=== PATIENT | female | born 1955 | race Two or more races ===

== ENCOUNTER 2023-02-27 16:31 | Outpatient (REF) | payer MEDICAID, SELFPAY | END 2023-02-27 16:32 | disposition home or self-care (01) | LOC: HO.HHCX 16:31 | PROVIDERS: Visit Provider Internal Medicine | DX: M25.522 Pain in left elbow (principal); M54.50 Low back pain, unspecified; G89.29 Other chronic pain; Z91.81 History of falling | CPT/HCPCS: 72100; 73070 ==

== ENCOUNTER 2023-03-24 09:17 | Outpatient (REF) | payer MEDICAID, SELFPAY | END 2023-03-24 09:18 | disposition home or self-care (01) | LOC: HO.HOSX 09:17 | PROVIDERS: Visit Provider Physician Assistant | DX: Z13.89 Encounter for screening for other disorder (principal) ==

== ENCOUNTER 2023-03-27 10:48 | Outpatient (REF) | payer MEDICAID, SELFPAY ==
--- NOTE | ~2023-03-27 | XR_ITS ---
EXAMINATION: XR ELBOW, LEFT CLINICAL INFORMATION: Pain. COMPARISON: Radiographs dated 02/27/2023. TECHNIQUE: AP, lateral, and oblique views of the left elbow. FINDINGS: There is bony demineralization. There is stable mild displacement of a fracture of the olecranon process of the proximal left ulna. This shows intra-articular extension. There is no significant new callus formation. No dislocation is seen. There is no significant joint effusion. No focal soft tissue swelling, gas or foreign body is seen. XR/XR elbow LT min 3V IMPRESSION: There is stable mild displacement of a fracture of the lateral process of the proximal left ulna. No significant new callus formation is seen.
== END 2023-03-27 10:49 | disposition home or self-care (01) ==
LOC: HO.HOSX 10:48
PROVIDERS: PCP Registered Nurse; Visit Provider Physician Assistant
DX: M25.522 Pain in left elbow (principal); S52.022A Displaced fracture of olecranon process without intraarticular extension of left ulna, initial encounter for closed fracture; W01.0XXA Fall on same level from slipping, tripping and stumbling without subsequent striking against object, initial encounter; Y93.9 Activity, unspecified; Y92.009 Unspecified place in unspecified non-institutional (private) residence as the place of occurrence of the external cause; Y99.9 Unspecified external cause status
CPT/HCPCS: 73080; 99212

== ENCOUNTER 2023-03-27 10:48 | Outpatient (AMB) | payer MEDICAID, SELFPAY ==
--- NOTE | 2023-03-27 11:07 | MHC.OFFVIS ---
Intake Intake Visit Reasons: fc-displaced intra-articular fx olecranon Intake Note: Karissa is a 67 year old right hand dominant female who presents today for a evaluation of her left elbow fx, DOI 02/17/23. Patient reports she slipped and fell in her home. Patient reports that she is having pain when she is bending her arm and her ROM is limited. Allergies aspirin Allergy (Mild, Verified 03/27/23 11:08) Rash Medication List - Last Reconciled 03/27/23 by Javan Calderon PA-C cetirizine 10 mg PO DAILY etanercept (Enbrel SureClick) mg subcut losartan 25 mg PO QAM omeprazole 20 mg PO DAILY HPI fc-displaced intra-articular fx olecranon HPI Details 67-year-old right hand dominant female who presents to the office today with an tomato grader for evaluation of left elbow injury s/p slipping and falling in her house, 02/17/23. Records from her PCP states she did not seek medical attention after the fall due to the holidays. She currently states she has pain in her elbow which is aggravated with bending her arm. She also c/o limited ROM in her elbow and finds it difficult to grab objects and sweep the floor. She is applying warm compress and taking ibuprofen for her pain. [facility] Social History (Updated 03/27/23 @ 11:11 by Bonifacio Araiza) Alcohol intake: never Patient Tobacco Use Status: Never used Tobacco Current occupational status: disabled Review of Systems Const All systems reviewed & are unremarkable except as noted in HPI and below Physical Exam Const General: cooperative and no acute distress Orientation/consciousness: patient oriented x3 Resp Effort & Inspection: normal respiratory effort and able to speak in complete sentences Cardio Peripheral pulses: Peripheral pulses 2+ throughout Neuro General: patient oriented x3 Extrem Other: Left elbow: Normal to inspection. Flexion to about 80 degrees, extension to -15 degrees. NVI. Office Procedures Fracture Care Fracture Billing Code: Fracture Billing Code Results Reviewed Results Reviewed: Xrays were obtained in the office today and personally reviewed by me of the left elbow show mildly displaced olecranon fracture with stability compared to previous imaging. Assessment & Plan Assessment & Plan (1) Fracture of olecranon process, left, closed: Code(s): S52.022A - Displaced fracture of olecranon process without intraarticular extension of left ulna, initial encounter for closed fracture Qualifiers: Encounter type: initial encounter Qualified Code(s): S52.022A - Displaced fracture of olecranon process without intraarticular extension of left ulna, initial encounter for closed fracture Plan Dr. Grant was available to see the patient with me today. Because her fracture is approximately 6 weeks out and there is evidence of stability, we are going to treat this non operatively. She can move the arm however she just have some disc with activities. She will avoid any type of heavy lifting. She can continue gentle ROM but avoid any deep ROM of her arm. She will see us back in 6 weeks with new x-rays, sooner if needed. Orders: Orders XR elbow LT min 3V 03/27/23 M25.522 - Pain in left elbow Patient Instructions: Scribed for Javan Calderon PA-C, by Tiago Chávez medical billing coordinator, on 03/27/2023 at 10:30 AM EST. I, Javan Calderon PA-C, have personally reviewed and agree with the information entered by the scribe. Coding Level of Care Code New Pt Level 3 (41109) Diagnoses Closed fracture of olecranon process of left ulna, initial encounter S52.022A Encounter type: initial encounter CPT Codes Fracture Care - Fracture Billing Code: Fracture Billing Code ([id number])
== END 2023-03-27 12:18 | disposition home or self-care (01) ==
PROVIDERS: PCP Registered Nurse; Visit Provider Physician Assistant
DX: S52.022A Displaced fracture of olecranon process without intraarticular extension of left ulna, initial encounter for closed fracture (principal)
CPT/HCPCS: 99203

== ENCOUNTER 2023-04-28 15:55 | Outpatient (REF) | payer MEDICAID, SELFPAY | END 2023-04-28 15:56 | disposition home or self-care (01) | LOC: HO.HOSX 15:55 | PROVIDERS: Visit Provider Physician Assistant | DX: Z13.89 Encounter for screening for other disorder (principal) ==

== ENCOUNTER 2023-07-01 09:26 | Outpatient (REF) | payer MEDICAID, SELFPAY ==
[2023-07-01 12:00] LABS: Hematocrit 32.7 % (37.0-47.0); Hemoglobin 10.8 g/dl (12.0-16.0); Mean Corpuscular Hemoglobin 30.4 pg (27.0-33.0); Mean Corpuscular Volume 92.1 fL (80.0-98.0); Mean Platelet Volume 9.6 fL (9.4-12.3); Platelet Count 372 X10*3/uL (160-400); Red Blood Count 3.55 X10*6/uL (4.20-5.50); Red Cell Distribution Width 13.1 % (11.0-16.0); White Blood Count 4.9 X10*3/uL (4.8-10.8)
[2023-07-01 12:11] LABS: Estimated Average Glucose 111 mg/dL; Hemoglobin A1c % 5.5 % (<6.0)
[2023-07-01 12:25] LABS: Alanine Aminotransferase 15 U/L (0-31); Alkaline Phosphatase 88 U/L (39-117); Anion Gap 13 (12-20); Aspartate Amino Transferase 15 U/L (5-31); Bilirubin Total 0.2 mg/dL (0.0-1.0); Blood Urea Nitrogen 11 mg/dL (9-16); Carbon Dioxide 24 mmol/L (22-29); Chloride 107 mmol/L (96-108); Cholesterol 182 mg/dL (<200); Estimated Glomerular Filt Rate > 60; Glucose Random 83 mg/dL (60-115); HDL Cholesterol 36 mg/dL (>40); Iron 67 mcg/dL (30-160); LDL Cholesterol Calculated 115 mg/dL (<100); Percent Iron Saturation 31 % (15-50); Potassium 3.8 mmol/L (3.3-5.1); Sodium 140 mmol/L (135-145); Total Iron Binding Capacity 218 mcg/dL (228-428); Total Protein 6.9 g/dL (6.5-8.0); Triglycerides 156 mg/dL (<150); Unsaturated Iron Binding 151 ug/dL
[2023-07-01 12:39] LABS: Syphilis Screen Nonreactive (Nonreactive)
[2023-07-01 12:41] LABS: HBS Num1 0.16 mIU/mL (0-7.99); HBc Num1 0.11 S/CO (0.00-0.79); HBsAGNum1 0.24 S/CO (0.00-0.99); HIV AB/AG Nonreactive (Nonreactive); HIV Num 1 0.04 S/CO (0.00-0.99); Hepatitis B Core Antibody Nonreactive (Nonreactive); Hepatitis B Surface Antigen Negative (Negative); ~HepC Num1 0.09 S/CO (0.00-0.79); ~Hepatitis B Surface Antibody NONREACTIVE (Nonreactive); ~Hepatitis C Antibody Nonreactive (Nonreactive)
[2023-07-01 12:43] LABS: Ferritin 70 ng/mL (10-250); TSH reflex Free T4 1.84 uIU/mL (0.32-4.0); Vitamin D 25-OH Total 25.9 ng/mL (>30)
[2023-07-01 12:48] LABS: Folate 11.4 ng/mL (> or = 4.0); Vitamin B12 1960 pg/mL (200-900)
[2023-07-04 11:09] LABS: TS Negative Control Passed; TS Panel A 0; TS Panel B 1; TS Positive Control Passed; TSpotTB Negative (Negative)
== END 2023-07-01 09:27 | disposition home or self-care (01) ==
LOC: HO.HHCL 09:26
PROVIDERS: Visit Provider Student in an Organized Health Care Education/Training Program
DX: Z00.00 Encounter for general adult medical examination without abnormal findings (principal); Z11.4 Encounter for screening for human immunodeficiency virus [HIV]
CPT/HCPCS: 36415; 80053; 80061; 82306; 82607; 82728; 82746; 83036; 83540; 84443; 85027; 86481; 86704; 86706; 86780; 86803; 87340; 87389

== ENCOUNTER 2023-07-04 16:11 | Outpatient (REF) | payer MEDICAID, SELFPAY ==
[2023-07-04 17:11] LABS: Creatinine Urine 204.51 mg/dL; Microalbum/Creatinine Ratio Ur 9.7 ug/mg cr (<30)
== END 2023-07-04 16:12 | disposition home or self-care (01) ==
LOC: HO.HHCLNP 16:11
PROVIDERS: Visit Provider Student in an Organized Health Care Education/Training Program
DX: Z00.00 Encounter for general adult medical examination without abnormal findings (principal)
CPT/HCPCS: 82043; 82570

== ENCOUNTER 2023-08-20 13:48 | Outpatient (REF) | payer MEDICAID, SELFPAY ==
--- NOTE | ~2023-08-20 | MM_ITS ---
EXAMINATION: BONE DENSITOMETRY CLINICAL INDICATION: Chronic bone pain. History of chronic steroids. Evaluate for osteoporosis. COMPARISON: This is the patient's baseline examination. TECHNIQUE: Using a [employer] DXA System (software version: 13.1) manufactured by [employer], dual-energy x-ray absorptiometry was performed of the lumbar spine and left hip. The images are of good technical quality. Summary results are attached. FINDINGS: AP SPINE L1-L4: BMD 0.781 g/cm2, Z-score -1.6, T-score -3.3, osteoporosis. LEFT FEMUR, NECK: BMD 0.686 g/cm2, Z-score -0.8, T-score -2.5, osteoporosis. LEFT FEMUR, TOTAL: BMD 0.754 g/cm2, Z-score -0.5, T-score -2.0, osteopenia. IDENTIFIED RISK FACTORS: History of adult fracture. Rheumatoid arthritis. Menopause. HISTORY OF FRACTURE: Elbow. MEDICATIONS: Vitamin D. MM/XR DEXA axial skeleton IMPRESSION: 1. DIAGNOSIS: Osteoporosis based on the lowest T-score value of -3.3 in the lumbar spine applying World Health Organization criteria. 2. 10-YEAR FRACTURE RISK PREDICTION, FRAX: According to the guidelines, FRAX calculation should only be performed on patients in the osteopenia bone density category.?Therefore, FRAX was not performed on this patient.? 3. Treatment Recommendations: NOF guidelines recommend consideration for treatment in postmenopausal women and men age 50 and older presenting with the following: -A hip or vertebral (clinical or morphometric) fracture. -T-score less than or equal to -2.5 at the femoral neck or spine after appropriate evaluation to exclude secondary causes. -Low bone mass at the hip or spine and a 10-year fracture probability by FRAX of greater than or equal to 3% for hip fracture or greater than or equal to 20% for major osteoporotic fracture based on the [place] adapted WHO algorithm. 4. Other Recommendations: All treatment decisions require clinical judgment and consideration of individual patient factors, including patient preferences, comorbidities, previous drug use, risk factors not captured in the FRAX model (e.g. frailty, falls, vitamin D deficiency, increased bone turnover, interval significant decline in bone density) and possible under or overestimation of fracture risk by FRAX. Additional medical evaluation for secondary cause of low bone mineral density may be appropriate. FUTURE SCAN RECOMMENDATION: People with diagnosed cases of osteoporosis or at high risk for fracture should have regular bone mineral density tests. For patients eligible for Medicare, routine testing is allowed once every 2 years. The testing frequency can be increased to one year for patients who have rapidly progressing disease, those who are receiving or discontinuing medical therapy to restore bone mass, or have additional risk factors.
== END 2023-08-20 13:49 | disposition home or self-care (01) ==
LOC: HO.MAMMO 13:48
PROVIDERS: Visit Provider Student in an Organized Health Care Education/Training Program
DX: Z13.820 Encounter for screening for osteoporosis (principal); Z78.0 Asymptomatic menopausal state; M89.8X9 Other specified disorders of bone, unspecified site
CPT/HCPCS: 77080

== ENCOUNTER 2023-12-12 09:51 | Outpatient (REF) | payer MEDICAID, SELFPAY ==
[2023-12-12 13:37] LABS: Alanine Aminotransferase 14 U/L (0-31); Albumin Level 4.1 g/dL (3.5-5.0); Alkaline Phosphatase 93 U/L (39-117); Anion Gap 11 (12-20); Aspartate Amino Transferase 15 U/L (5-31); Bilirubin Total 0.3 mg/dL (0.0-1.0); Blood Urea Nitrogen 12 mg/dL (9-16); Calcium 9.5 mg/dL (8.4-10.2); Carbon Dioxide 26 mmol/L (22-29); Chloride 106 mmol/L (96-108); Cholesterol 144 mg/dL (<200); Estimated Glomerular Filt Rate > 60; Glucose Random 94 mg/dL (60-115); HDL Cholesterol 43 mg/dL (>40); LDL Cholesterol Calculated 84 mg/dL (<100); Sodium 139 mmol/L (135-145); Triglycerides 89 mg/dL (<150)
[2023-12-12 13:59] LABS: Folate 13.8 ng/mL (> or = 4.0); Vitamin B12 813 pg/mL (200-900)
== END 2023-12-12 09:52 | disposition home or self-care (01) ==
LOC: HO.HHCL 09:51
PROVIDERS: Visit Provider Student in an Organized Health Care Education/Training Program
DX: E78.5 Hyperlipidemia, unspecified (principal)
CPT/HCPCS: 36415; 80053; 80061; 82607; 82746

== ENCOUNTER → 2024-07-05 12:43 | Outpatient (BNV) | payer MEDICAID, SELFPAY | PROVIDERS: PCP Student in an Organized Health Care Education/Training Program; Visit Provider Radiology Diagnostic Radiology | DX: R90.82 White matter disease, unspecified (principal) | CPT/HCPCS: 70551 ==

== ENCOUNTER 2024-07-05 12:53 | Outpatient (REF) | payer MEDICAID, SELFPAY ==
--- NOTE | ~2024-07-05 | MR_ITS ---
EXAMINATION: MR BRAIN WITHOUT CONTRAST CLINICAL INFORMATION: Worsening memory loss. COMPARISON: None available. TECHNIQUE: MRI of the brain was obtained using routine sequences without contrast. FINDINGS: Limited by patient's motion artifact. No restricted diffusion Susceptibility signal fragment midline albino and putamen basal ganglia. Bilateral multifocal patchy and punctate subcortical deep white matter hyperintense T2 FLAIR signal involving centrum semiovale and baldwin radiata. No acute intracranial hemorrhage, mass effect, midline shift, hydrocephalus or herniation. Mild prominence of the extra-axial CSF spaces cerebral sulci in keeping with patient's age. Flow-void signal within the main cerebral vessels is normal. Sellar/suprasellar region demonstrated no signal abnormality or gross masses. Craniocervical junction is intact with normal position of the cerebellar tonsils. Edentulous. MR/MR head/brain wo con IMPRESSION: No acute brain abnormality. 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 Consider calcifications in the putamen involved in a benign aging process. Calcium metabolic disorders cannot be excluded. Electronically signed by: Laureano Fountain MD 07/05/2024 02:15 PM EDT
--- OUTSIDE RECORDS SUMMARY | 2024-07-05 13:12 | XMS_ITS | Encounter Summary ---
Author Organization [email or web address] Address [address] [place] [address] [address] [place] [address] Care Team Providers Care Director Of Rehabilitation Name Role Phone Bg Frazier Primary Care Provider Unavail able Jordyn Clark MD Primary Care Pro vider Reason for Visit * Reason Onset Date Comments Med Refill 10/30/2022 Encounter Details Date Type Department Care Team (Late st Contact Info) Description 10/30/2022 Refill [facility] [address] [place] [address] Bg Frazier AGNP Social History Tobacco Use Types Packs/Day Years Used Date Smoking Tobacco: Never Smokeless Tobacco: Never Depression Answer Date Recorded Patient Health Questionnaire-9 Score 0 05/10/2022 Depression Answer Date Recorded Patient Health Questionnaire-2 Score 0 05/10/2022 Comments Unknown Sex and Gender Information Value Date Recorded Sex Assigned at Female 12/24/2021 10:39 AM EDT Legal Sex Female 10:39 AM EDT Gender Identity Female 12/24/2021 10:39 AM EDT Sexual Orientation Straight 12/24/2021 10 :39 AM EDT documented as of this encounter Plan of Treatment Upcoming Encounters Date Type Department Care Team (Late st Contact Info) Description 07/20/2024 1:30 PM EDT Clinical Support [facility] [address] [place] [address] [phone] 08/19/2024 1:15 PM EDT Office Visit [facility] [address] [place] [address] [phone] Jordyn Clark MD [address] [place] [address] [phone] documented as of this encounter Visit Diagnoses Not on filedocumented in this encounter Additional Health Concerns Assessment Noted Time PHQ-9 Depression Total Score: 0 05/11/19 10:16 AM EDT documented as of this encounter Care Teams Director Of Rehabilitation Relationship Specialty Start Date End Date Bg Frazier AGNP PCP - General Family Medicine 01/15/22 11/03/22 Jordyn Clark MD [address] [place] [address] PCP - General Internal Medicine 11/04/22 documented as of this encounter
--- OUTSIDE RECORDS SUMMARY | 2024-07-05 13:12 | XMS_ITS | Encounter Summary ---
Author Organization [employer] Address [address] [facility] [address] [place] [address] Care Team Providers Care Continuous Improvement Specialist Name Role Phone Bg Frazier Primary Care Provider Unavail able Jordyn Clark MD Primary Care Pro vider Reason for Visit * Reason Onset Date Comments Referral 03/28/2022 Encounter Details Date Type Department Care Team (Late st Contact Info) Description 03/28/[address] [facility] [address] [place] [address] Bg Frazier AGNP Referral Social History Tobacco Use Types Packs/Day Years Used Date Smoking Tobacco: Never Assessed Comments Unknown Sex and Gender Information Value Date Recorded Sex Assigned at Female 12/24/2021 10:39 AM EDT Legal Sex Female 10:39 AM EDT Gender Identity Female 12/24/2021 10:39 AM EDT Sexual Orientation Straight 12/24/2021 10 :39 AM EDT COVID-19 Exposure Response Date Recorded In the last 10 days, have yo u been in contact with someone who was confirmed or suspected to have Coronavirus/COVID-19? No / Unsure 02/27/2022 4:04 PM EST documented as of this encounter Miscellaneous Notes * Telephone Encounter - PORTER Interiano - 03/29/2022 9:35 AM EST Please inform patient that a new referral has been placed. Referrals copied as FYI * Telephone Encounter - Hilary Arleth - 03/28/2022 10:53 AM EST Tc from pt daughter requesting a new referral with a different location to an optometry due to where she was referral ,they have a wait list and no appt till May . documented in this encounter Plan of Treatment Upcoming Encounters Date Type Department Care Team (Late st Contact Info) Description 07/20/2024 1:30 PM EDT Clinical Support [address] [id number] 08/19/2024 1:15 PM EDT Office Visit [address] [address] Jordyn Clark MD [address] [place] [phone] documented as of this encounter Visit Diagnoses Diagnosis Visual testing- Primary Examination of eyes and vision documented in this encounter Care Teams Continuous Improvement Specialist Relationship Specialty Start Date End Date Bg Frazier AGNP PCP - General Family Medicine 01/15/22 11/03/22 Jordyn Clark MD [address] [place] [phone] PCP - General Internal Medicine 11/04/22 documented as of this encounter
--- OUTSIDE RECORDS SUMMARY | 2024-07-05 13:12 | XMS_ITS | Clinical Summary ---
Author Organization [employer] Address [address] [facility] 7t [place] [address] Care Team Providers Care Caramel Candy Maker Name Role Phone Jordyn Clark MD Primary Care Pro vider Allergies Active Allergy Reactions Criticality Noted Date Comments Aspirin 08/01/2022 Bruising Medications ascorbic acid (Vitamin C) 500 MG tablet take one tablet daily to help with iron absorption 01/17/20 21 Active Blood Pressure kitIndications: Essential hypertension 1 kit in the morning and 1 kit in the evening. 1 kit 02/27/19 23 Active Multiple Vitamin (multivitamin) capsule Take 1 capsule by mouth Once per day. Active acetaminophen (Tylenol 8 Hour) 650 MG ER tablet TAKE 1 TABLET BY MOUTH EVERY 8 HOURS IF NEEDED FOR MILD PAIN. DO NOT CRUSH, CHEW OR SPLIT. 30 tablet 09/15/19 24 Active calcium carbonate (Calcium 600) 600 MG tablet Take 1 tablet (600 mg) by mouth with breakfast and with evening meal. 60 tablet 3 10/07/19 24 025 Active Orencia ClickJect 125 MG/ML solution auto-injector 11/19/19 24 Active atorvastatin (Lipitor) 10 MG tablet Take 1 tablet (10 mg) by mouth Once per day. 90 tablet 12/16/19 24 025 Active losartan (Cozaar) 25 MG tabletIndicatio ns:Essential hypertension TAKE 1 TABLET BY MOUTH EVERY DAY 90 tablet 03/18/19 25 Active omeprazole (PriLOSEC) [address] capsuleIndicati ons:Epigastric pain TAKE 1 CAPSULE BY MOUTH EVERY DAY BEFORE A MEAL 90 capsule 03/18/19 25 Active alendronate (Fosamax) 70 MG tablet Take 1 tablet (70 mg) by mouth every 7 (seven) days. Take in the morning with a full glass of water, on an empty stomach, and do not take anything else by mouth or lie down for the next 30 min. 4 tablet 5 06/10/19 25 026 Active cholecalciferol (Vitamin D-3) 125 MCG (5000 UT) tablet Take 1 tablet (125 mcg) by mouth Once per day. 30 tablet 2 06/10/19 25 Active sodium chloride ([place]) 0.65 % nasal spray Administer 1 spray into each nostril if needed for congestion. 15 mL 11 06/10/19 25 026 Active simethicone (Simethicone Ultra Strength) 180 MG capsule TAKE 1 CAPSULE BY MOUTH THREE TIMES DAILY FOR GAS 90 capsule 3 07/03/19 25 Active cetirizine (ZyrTEC) 10 MG tablet TAKE 1 TABLET BY MOUTH EVERY DAY 90 tablet 1 12/10/19 23 025 Discontinued(O ther) triamcinolone (Kenalog) 0.1 % ointment Apply topically 2 times daily. 15 g 07/04/19 24 025 Discontinued(O ther) sodium chloride ([place]) 0.65 % nasal spray Administer 1 spray into each nostril if needed for congestion. 15 mL 2 07/04/19 24 025 Discontinued(R eorder (will not trigger notification to Pharmacy)) predniSONE (Deltasone) 1 MG tablet Take by mouth. 025 Discontinued(O ther) alendronate (Fosamax) 70 MG tablet Take 1 tablet (70 mg) by mouth every 7 (seven) days. Take in the morning with a full glass of water, on an empty stomach, and do not take anything else by mouth or lie down for the next 30 min. 4 tablet 5 10/07/19 24 025 Discontinued(R eorder (will not trigger notification to Pharmacy)) cholecalciferol (Vitamin D-3) 125 MCG (5000 UT) tablet Take 1 tablet (125 mcg) by mouth Once per day. 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 Assessment & Plan (09/04/2022 10:47 AM EDT): Ddx: inflamatory anemia possibly due to RA, next RA appointment 09/05/2022 patient reported. Assessment & Plan (07/03/2022 1:05 PM EDT): Patient had colon, duodenum, gastric and esophagus biopsy on 07/27/21 Findings: Colon, random Colonic mucosa with no significant diagnostic alterations Duodenum: Duodenal mucosa with no significant diagnostic alterations (villous architecture preserved) Stomach, random: Gastric antral and oxyntic mucosa with no significant diagnostic alterations. No morphologic evidence of Helicobacter pylori micro-organisms. Esophagus: Esophageal squamous mucosa with No significant diagnostic alterations. Labs Component Ref Range & Units 1 mo ago (05/22/22) 1 mo ago (05/10/22) 1 yr ago (01/03/21) Red Blood Cell Count 3.80 - 5.10 Million/uL 3.66??Low?? 3.66??Low?? 3.28??Low?? Hemoglobin 11.7 - 15.5 g/dL 11.4??Low?? 11.6??Low?? 10.5??Low?? Hematocrit 35.0 - 45.0 % 34.1??Low?? 33.9??Low?? 30.8??Low?? Component Ref Range & Units 09:35 (07/03/22) 1 mo ago (05/22/22) 1 mo ago (05/10/22) 1 yr ago (01/03/21) Hemoglobin 12.0 - 15.0 10.1??Abnormal?? 11.4??Low?? R 11.6??Low?? R 10.5??Low?? R Iron wnl B12 wnl Retic count wnl APTT wnl INR wnl I have been unable to address the cause of Karissa's anemia. I will refer her to hematology for further workup. Assessment & Plan (05/24/2022 12:56 PM EDT): Patient has follow up with me on 06/21 to discuss lab work. Previous colonoscopy/biopsy was wnl. Rheumatoid arthritis 01/05/2021 Encounters Date Type Department Care Team Description 07/02/[address] [address] Jordyn Clark MD 06/09/2024 10:45 AM EDT Office Visit [address] [address] Jordyn Clark MD Annual physical exam (Primary Dx); Dietary counseling; Exercise counseling; Rheumatoid arthritis with positive rheumatoid factor, involving unspecified site ([facility]); Memory loss; Encounter for immunization; Primary hypertension; Routine health maintenance; Hyperlipidemia, unspecified hyperlipidemia type 06/09/2024 Travel 06/02/[address] [facility] [address] [place], [place] [phone] Jordyn Clark MD Pre-visit Planning ([facility] unable to reach [facility]) 05/31/[address] [facility] [address] [place] [phone] Jordyn Clark MD chart prep 04/23/[address] [address] Jordyn Clark MD May recall from Last 3 Months Immunizations Name Administration Dates Next Due Hep B, adult 06/09/2024,10/07/2023,07/04/2023 Influenza injectable quadriv alent preservative free 04/18/2023,03/21/2021 Pfizer Covid-19 Vaccine 12+ 12/24/2023, Pfizer Covid-19 Vaccine 12+ reid-sucrose (Saba Cap) 07/27/2021 Pneumococcal Conjugate PCV 13 03/21/2021 Pneumococcal Conjugate PCV 20 09/04/2022 RSV Bivalent 07/07/2023 Tdap 03/21/2021 Family History Medical History Relation Name Comments Rheum arthritis Mother Relation Name Status Comments Mother Social History Tobacco Use Types Packs/Day Years Used Date Smoking Tobacco: Never Smokeless Tobacco: Never Tobacco Cessation:Counseling Given: Not Answered Alcohol Use Standard Drinks/Week Comments Never 0 (1 standard drink = 0.6 oz pur e alcohol) Depression Answer Date Recorded Patient Health Questionnaire-9 Score 0 06/09/2024 Patient Health Questionnaire-9 Score 0 06/09/2024 Last PHQ-9: Questionnaire Data Not on file 0 06/09/2024 Housing Stability Answer Date Recorded What is your housing situation today? I have elizabeth costello 06/09/[address] you li ve. Do you have problems with any of the following? None of the above 06/09/2024 Food Insecurity Answer Date Recorded Within the past 12 months, y ou worried that your food would run out before you got money to buy more: Never True 06/09/2024 Within the past 12 months,th e food you bought just didn't last and you didn't have enough money to get more: Never True Transportation Answer Date Recorded In the past 12 months, has l ack of transportation kept you from medical appts, meetings, work or from getting things needed for daily living? No 06/09/2024 Utilities Answer Date Recorded In the past 12 months, has t he electric, gas, oil or water company threatened to shut off services in your home? No 06/09/2024 Depression Answer Date Recorded Patient Health Questionnaire-2 Score 0 06/09/2024 Internet Access Answer Date Recorded Internet Access Q1 Yes 06/09/2024 Internet Access Q2 Not on file 06/09/2024 Comments Unknown Sex and Gender Information Value Date Recorded Sex Assigned at Female 12/24/2021 10:39 AM EDT Legal Sex Female 10:39 AM EDT Gender Identity Female 12/24/2021 10:39 AM EDT Sexual Orientation Straight 12/24/2021 10 :39 AM EDT Last Filed Vital Signs Vital Sign Reading Time Taken Comments Blood Pressure 133/73 06/09/2024 11:03 AM EDT Pulse 77 06/09/2024 11:03 AM EDT Temperature 36.1 ??C (97 ??F) 10/07/2023 11:02 AM EDT Respiratory Rate 20 06/09/2024 11:03 AM EDT Oxygen Saturation 97% 10/07/2023 11:02 AM EDT Inhaled Oxygen Concentration - - Weight 60.8 kg (134 lb) 06/09/2024 11:03 AM EDT Height 154.9 cm (5' 1 ) 06/09/2024 11:03 AM EDT Body Mass Index 25.32 06/09/2024 11:03 AM EDT Plan of Treatment Upcoming Encounters Date Type Department Care Team (Late st Contact Info) Description 07/20/2024 1:30 PM EDT Clinical Support [facility] [address] [place] [phone] 08/19/2024 1:15 PM EDT Office Visit [facility] [address] [place] [phone] Jordyn Clark MD [address] [place] [phone] Health Maintenance Due Date Last Done Comments CT Colonography 1953 FIT DNA/Cologuard 1953 FIT 1953 FOBT 1953 Sigmoidoscopy 1953 Mammogram 1993 Zoster Vaccines (1 of 2) 08/03/2003 Influenza Vaccine (#1) 2023 04/18/2023, 2021 Alcohol/Substance Use Screening 06/09/2025 06/09/2024 Depression Screening 06/09/2025 06/09/2024, 06/10/19 25 SDOH Screening 06/09/2025 06/09/2024 Tobacco Screening 06/09/2025 06/09/2024 Lipid Panel 12/11/2028 12/12/2023, 05/0 08/2023, 01/03/2021 DTaP/Tdap/Td Vaccines (2 - Td or Tdap) 03/21/2031 03/21/2021 Colonoscopy 07/28/2031 Colorectal Cancer Screening 07/28/2031 Pneumococcal Vaccine: 50+ Years Completed 09/04/2022, 03/21/2021 Hepatitis C Screening Completed 07/01/2023 RSV Patients and Patients Aged 60 years or older Completed 07/07/2023 COVID-19 Vaccine Completed 12/24/2023, , 07/27/2021, Additional history exists Hepatitis B Vaccines Completed 06/09/2024, 10/07/2023, 07/04/2023 HIB Vaccines Aged Out No longer eligi ble based on patient's age to complete this topic HPV Vaccines Aged Out No longer eligi ble based on patient's age to complete this topic Hepatitis A Vaccines Aged Out No long er eligible based on patient's age to complete this topic IPV Vaccines Aged Out No longer eligi ble based on patient's age to complete this topic Meningococcal Vaccine Aged Out No tom rehan eligible based on patient's age to complete this topic RSV under 20 months Aged Out No longe r eligible based on patient's age to complete this topic Rotavirus Vaccines Aged Out No longer eligible based on patient's age to complete this topic Procedures Procedure Name Priority Date/Time Associated Diagnosis Comments LIPID PANEL, STANDARD Routine 12/12/2023 10:00 AM EDT Hyperlipidemia, unspecified hyperlipidemia type HEPATITIS C AB W/REFL TO HCV RNA, QN, PCR Routine 07/01/2023 9:30 AM EDT Annual physical exam from Last 3 Months or Most Recently Relevant to Health Maintenance Results * Lipid Panel, Standard (12/12/2023 10:00 AM EDT) Triglycerides 89 <150 mg/dL [facility] Comment:Desirable Triglyceri de: less than 150 mg/dLBorderline High Triglyceride 150-199 mg/dLHigh Triglyceride: 200-499 mg/dLVery High Triglyceride: greater than or equal to 5OO mg/dL Cholesterol 144 <200 mg/dL [facility] Comment:Desirable Cholestero l: less than 200 mg/dLBorderline High Cholesterol: 200-239 mg/dLHigh Cholesterol: greater than 239 mg/dL LDL Cholesterol Calculated 84 <100 mg/dL [facility] Comment:Desirable LDL: less than 100 mg/dLNear Optimal/Above Optimal LDL: 110- 129 mg/dLBorderline High LDL: 130-159 mg/dLHigh LDL: 160-189 mg/dLVery High LDL: greater than or equal to 190 mg/dL HDL Cholesterol 43 >40 mg/dL [facility] Comment:Desirable HDL: great er than 40 mg/dL Note: This HDL assay may give artificially low results in patients with liver disease. Blood Venous blood specimen / Unknown 12/12/2023 10:00 AM EDT 12/12/2023 12:02 PM EDT us Jordyn Wood MD LAB BLOOD ORDERAB LES Final Result Performing Organization Address [facility] Co de Phone Number [facility] [address] [place] [phone] * Hepatitis C Antibody with Reflex to HCV, RNA, Quantitative, Real-Time PCR (07/01/2023 9:30 AM EDT) Hepatitis C Antibody Nonreactive Nonreactive [facility] Comment:Antibodies to HCV no t detected; does not exclude early acuteHCV infection. Blood Venous blood specimen / Unknown 07/01/2023 9:30 AM EDT 07/01/2023 11:41 AM EDT us Jordyn Wood MD LAB BLOOD ORDERAB LES Final Result Performing Organization Address [facility] Co de Phone Number [facility] [address] [place] [phone] from Last 3 Months or Most Recently Relevant to Health Maintenance Insurance [facility]SN [facility] STANDARD Care Teams Caramel Candy Maker Relationship Specialty Start Date End Date Jordyn Clark MD [address] [place] [phone] PCP - General Internal Medicine 11/04/22
--- OUTSIDE RECORDS SUMMARY | 2024-07-05 13:12 | XMS_ITS | Encounter Summary ---
Author Organization [employer] Address [address] [place] [address] 7 [place] [address] Care Team Providers Care Cold Storage Supervisor Name Role Phone Jordyn Clark MD Primary Care Pro vider Reason for Visit * Reason Onset Date Comments Med Refill 02/24/2024 Encounter Details Date Type Department Care Team ([facility] st Contact Info) Description 02/24/2024 Telephone [facility] [address] [place], [place] [phone] Jordyn Clark MD [address] [place] [address] Med Refill Social History Tobacco Use Types Packs/Day Years Used Date Smoking Tobacco: Never Smokeless Tobacco: Never Alcohol Use Standard Drinks/Week Comments Never 0 (1 standard drink = 0.6 oz pur e alcohol) Depression Answer Date Recorded Patient Health Questionnaire-9 Score 4 04/18/2023 Patient Health Questionnaire-9 Score 4 04/18/2023 Last PHQ-9: Questionnaire Data Not on file 0 04/18/2023 Housing Stability Answer Date Recorded What is your housing situation today? I have elizabeth costello 04/09/[address] you li ve. Do you have problems with any of the following? None of the above 04/09/2023 Food Insecurity Answer Date Recorded Within the past 12 months, y ou worried that your food would run out before you got money to buy more: Sometimes True 2023 Within the past 12 months,th e food you bought just didn't last and you didn't have enough money to get more: Sometimes True 04/09/2023 Transportation Answer Date Recorded In the past 12 months, has l ack of transportation kept you from medical appts, meetings, work or from getting things needed for daily living? No 04/09/2023 Utilities Answer Date Recorded In the past 12 months, has t he electric, gas, oil or water company threatened to shut off services in your home? No 04/09/2023 Depression Answer Date Recorded Patient Health Questionnaire-2 Score 1 04/18/2023 Comments Unknown Sex and Gender Information Value Date Recorded Sex Assigned at Female 12/24/2021 10:39 AM EDT Legal Sex Female 10:39 AM EDT Gender Identity Female 12/24/2021 10:39 AM EDT Sexual Orientation Straight 12/24/2021 10 :39 AM EDT documented as of this encounter Miscellaneous Notes * Telephone Encounter - Helen Yepez LPN - 02/24/2024 11:54 AM EST Medication was sent to [facility] on 02/09/24 with 3 refills. * Telephone Encounter - Doreen Howell - 02/24/2024 11:51 AM EST TC from pt requesting medication refill. Medications needing refill : simethicone (Simethicone Ultra Strength) 180 MG capsule To be sent to: [facility] - [address] documented in this encounter Plan of Treatment Upcoming Encounters Date Type Department Care Team (Late st Contact Info) Description 07/20/2024 1:30 PM EDT Clinical Support [facility] [address] [place] [phone] 08/19/2024 1:15 PM EDT Office Visit [facility] [address] [place] [phone] Jordyn Clark MD [address] [place] [address] documented as of this encounter Visit Diagnoses Not on filedocumented in this encounter Additional Health Concerns Assessment Noted Time PHQ-9 Depression Total Score: 4 04/18/19 24 2:52 PM EST documented as of this encounter Care Teams Cold Storage Supervisor Relationship Specialty Start Date End Date Jordyn Clark MD [address] [place] [phone] PCP - General Internal Medicine 11/04/22 documented as of this encounter
--- OUTSIDE RECORDS SUMMARY | 2024-07-05 13:12 | XMS_ITS | Encounter Summary ---
Author Organization [employer] Address [address] [facility] 7 [place] [address] Care Team Providers Care Electronic Video Games Servicer Name Role Phone Jordyn Clark MD Primary Care Pro vider Reason for Visit * Reason Onset Date Comments Med Refill 07/02/2024 Encounter Details Date Type Department Care Team (Late st Contact Info) Description 07/02/2024 Refill [facility] [address] [place], [place] [phone] Jordyn Clark MD [address] [place] [address] Social History Tobacco Use Types Packs/Day Years [...] Telephone Encounter - Helen Yepez LPN - 07/02/2024 12:38 PM EDT Last seen 06/09/24. * Telephone Encounter - Lucian Lam - 07/02/2024 12:26 PM EDT TC from pt requesting medication refill. Medications needing refill : simethicone (Simethicone Ultra Strength) 180 MG capsule To be sent to: [facility] documented in this encounter Plan of Treatment Upcoming Encounters Date Type Department Care Team (Late st Contact Info) Description 07/20/2024 1:30 PM EDT Clinical Support [facility] [address] [place] [phone] 08/19/2024 1:15 PM EDT Office Visit [facility] [address] [place] [phone] Jordyn Clark MD [address] [place], [place] [phone] documented as of this encounter Visit Diagnoses Not on filedocumented in this encounter Additional Health Concerns Assessment Noted Time PHQ-9 Depression Total Score: 0 06/10/19 25 11:04 AM EDT documented as of this encounter Care Teams Electronic Video Games Servicer Relationship Specialty Start Date End Date Jordyn Clark MD [address] [place] [phone] PCP - General Internal Medicine 11/04/22 documented as of this encounter
--- OUTSIDE RECORDS SUMMARY | 2024-07-05 13:12 | XMS_ITS | Encounter Summary ---
Author Organization [employer] Address [address] [place] [address] 7 [place] [address] Care Team Providers Care Stucco Laborer Name Role Phone Jordyn Clark MD Primary Care Pro vider Reason for Visit * Reason Onset Date Comments Med Refill 12/05/2023 Encounter Details Date Type Department Care Team ([facility] st Contact Info) Description 12/05/2023 Telephone [facility] [address] [place], [place] [phone] Jordyn Clark MD [address] [place] [address] Med Refill Social History Tobacco Use Types [...] Telephone Encounter - Helen Yepez LPN - 12/05/2023 3:38 PM EDT Medication was sent to [facility] on 09/15/23 with 3 refills. * Telephone Encounter - Hitesh Araiza - 12/05/2023 3:35 PM EDT TC from pt requesting medication refill. Medications needing refill: simethicone (Simethicone Ultra Strength) 180 MG capsule To be sent to: [facility] - [place], [place] - [address] [place] [address] documented in this encounter Plan of Treatment Upcoming Encounters Date Type Department Care Team (Late st Contact Info) Description 07/20/2024 1:30 PM EDT Clinical Support [facility] [address] [place] [phone] 08/19/2024 1:15 PM EDT Office Visit [facility] [address] [place] [phone] Jordyn Clark MD [address] [place] [address] documented as of this encounter Visit Diagnoses Not on filedocumented in this encounter Additional Health Concerns Assessment Noted Time PHQ-9 Depression Total Score: 4 02/23/20 24 2:52 PM EST documented as of this encounter Care Teams Stucco Laborer Relationship Specialty Start Date End Date Jordyn Clark MD [address] [place] [phone] PCP - General Internal Medicine 11/04/22 documented as of this encounter
--- OUTSIDE RECORDS SUMMARY | 2024-07-05 13:12 | XMS_ITS | Encounter Summary ---
Author Organization [employer] Address [address] [place] [address] 7t [place] [address] Care Team Providers Care Air Route Traffic Controller Name Role Phone Bg Frazier Primary Care Provider Unavail able Jordyn Clark MD Primary Care Pro vider Reason for Visit * Reason Onset Date Comments medical Letter 09/09/2022 Encounter Details Date Type Department Care Team ([facility] st Contact Info) Description 09/09/2022 Telephone [facility] [address] [place] [address] Bg Frazier AGNP medical Letter Social History Tobacco Use Types Packs/Day Years [...] suspected to have Coronavirus/COVID-19? No / Unsure 09/04/2022 9:50 AM EDT documented as of this encounter Miscellaneous Notes * Telephone Encounter - Bianca Thompson - 09/09/2022 4:01 PM EDT Tc from daughter requesting a letter with pt's all medical conditions in order to renew handicappedservices or plate. Please contact daughter at [phone] Uzbek Speaker documented in this encounter Plan of Treatment Upcoming Encounters Date Type Department Care Team (Late st Contact Info) Description 07/20/2024 1:30 PM EDT Clinical Support [address] [phone] 08/19/2024 1:15 PM EDT Office Visit [address] [address] Jordyn Clark MD [address] [place] [phone] documented as of this encounter Visit Diagnoses Not on filedocumented in this encounter Additional Health Concerns Assessment Noted Time PHQ-9 Depression Total Score: 0 05/11/19 23 10:16 AM EDT documented as of this encounter Care Teams Air Route Traffic Controller Relationship Specialty Start Date End Date Bg Frazier AGNP PCP - General Family Medicine 01/15/22 11/03/22 Jordyn Clark MD [address] [place] [phone] PCP - General Internal Medicine 11/04/22 documented as of this encounter
--- OUTSIDE RECORDS SUMMARY | 2024-07-05 13:12 | XMS_ITS | Encounter Summary ---
Author Organization [employer] Address [address] [facility] 7t [place] [address] Care Team Providers Care Tank Builder Supervisor Name Role Phone Jordyn Clark MD Primary Care Pro vider Reason for Visit * Reason Comments Med Refill Encounter Details Date Type Department Care Team (Late st Contact Info) Description 07/10/[address] [facility] 230 [place], [place] [phone] Jordyn Clark MD 230 [place] [address] Social History Tobacco Use Types Packs/Day Years [...] Description 07/20/2024 1:30 PM EDT Clinical Support [address] [address] 08/19/2024 1:15 PM EDT Office Visit [address] [address] Jordyn Clark MD [address] [place] [phone] documented as of this encounter Visit Diagnoses Not on filedocumented in this encounter Additional Health Concerns Assessment Noted Time PHQ-9 Depression Total Score: 4 04/18/19 24 2:52 PM EST documented as of this encounter Care Teams Tank Builder Supervisor Relationship Specialty Start Date End Date Jordyn Clark MD [address] [place] [phone] PCP - General Internal Medicine 11/04/22 documented as of this encounter
--- OUTSIDE RECORDS SUMMARY | 2024-07-05 13:12 | XMS_ITS | Encounter Summary ---
Author Organization [employer] Address [address] [place] [address] 7t [place] [address] Care Team Providers Care Pot Pusher Name Role Phone Jordyn Clark MD Primary Care Pro vider Reason for Visit * Reason Comments Med Refill Encounter Details Date Type Department Care Team (Late st Contact Info) Description 11/08/2022 Refill [facility] & PEDS 505 [place], [place] [phone] Barbra Padilla MD 505 [place], [place] [phone] Social History Tobacco Use Types Packs/Day Years [...] Description 07/20/2024 1:30 PM EDT Clinical Support [facility] [address] [place] [address] [phone] 08/19/2024 1:15 PM EDT Office Visit [facility] [address] [place] [address] Jordyn Clark MD 230 [place], [place] [phone] documented as of this encounter Visit Diagnoses Not on filedocumented in this encounter Additional Health Concerns Assessment Noted Time PHQ-9 Depression Total Score: 0 05/11/19 10:16 AM EDT documented as of this encounter Care Teams Pot Pusher Relationship Specialty Start Date End Date Jordyn Clark MD [address] [place] [phone] PCP - General Internal Medicine 11/04/22 documented as of this encounter
--- OUTSIDE RECORDS SUMMARY | 2024-07-05 13:12 | XMS_ITS | Encounter Summary ---
Author Organization [employer] Address [address] [place] [address] 7 [place] [address] Care Team Providers Care Component Overhaul Operator Name Role Phone Jordyn Clark MD Primary Care Pro vider Reason for Visit * Reason Onset Date Comments Created in error 10/28/2023 Encounter Details Date Type Department Care Team ([facility] st Contact Info) Description 10/28/2023 Telephone [facility] 230 [place], [place] [phone] Jordyn Clark MD 230 [place] [address] Created in error Social History Tobacco Use Types Packs/Day Years [...] Description 07/20/2024 1:30 PM EDT Clinical Support [address] [address] 08/19/2024 1:15 PM EDT Office Visit [address] [address] Jordyn Clark MD [address] [place] [phone] documented as of this encounter Visit Diagnoses Not on filedocumented in this encounter Additional Health Concerns Assessment Noted Time PHQ-9 Depression Total Score: 4 04/18/19 24 2:52 PM EST documented as of this encounter Care Teams Component Overhaul Operator Relationship Specialty Start Date End Date Jordyn Clark MD [address] [place] [phone] PCP - General Internal Medicine 11/04/22 documented as of this encounter
--- OUTSIDE RECORDS SUMMARY | 2024-07-05 13:12 | XMS_ITS | Encounter Summary ---
Author Organization [employer] Address [address] [place] [address] 7 [place] [address] Care Team Providers Care Gear Nicker Name Role Phone Jordyn Clark MD Primary Care Pro vider Reason for Visit * Reason Onset Date Comments Med Refill 08/05/2023 Encounter Details Date Type Department Care Team (Late st Contact Info) Description 08/05/2023 Telephone [facility] 230 [place], [place] [phone] Jordyn Clark MD 230 [place], [place] [phone] Med Refill Social History Tobacco Use Types [...] Telephone Encounter - Helen Yepez LPN - 08/05/2023 2:34 PM EDT 90 day supply was sent on 06/10/23 to [facility] to soon for refill. * Telephone Encounter - Jah Batres - 08/05/2023 2:30 PM EDT TC from pt requesting medication refill. Medications needing refill : omeprazole (PriLOSEC) [address] capsule To be sent to: [facility] - [place], [place] - [address] [place] [address] documented in this encounter Plan of Treatment Upcoming Encounters Date Type Department Care Team (Late st Contact Info) Description 07/20/2024 1:30 PM EDT Clinical Support [facility] [address] [place] [address] [phone] 08/19/2024 1:15 PM EDT Office Visit [facility] [address] [place] [address] [phone] Jordyn Clark MD 230 [place] [address] documented as of this encounter Visit Diagnoses Not on filedocumented in this encounter Additional Health Concerns Assessment Noted Time PHQ-9 Depression Total Score: 4 04/18/19 24 2:52 PM EST documented as of this encounter Care Teams Gear Nicker Relationship Specialty Start Date End Date Jordyn Clark MD [address] [place] [phone] PCP - General Internal Medicine 11/04/22 documented as of this encounter
== END 2024-07-05 12:54 | disposition home or self-care (01) ==
LOC: HO.MRI 12:53
PROVIDERS: PCP Student in an Organized Health Care Education/Training Program; Visit Provider Student in an Organized Health Care Education/Training Program
DX: R41.3 Other amnesia (principal)
CPT/HCPCS: 70551

== ENCOUNTER 2024-08-16 10:05 | Outpatient (REF) | payer MEDICAID, SELFPAY ==
--- OUTSIDE RECORDS SUMMARY | 2024-08-16 11:12 | XMS_ITS | Encounter Summary ---
Author Organization [employer] Address [address] [place] [address] 7t [place] [address] Care Team Providers Care Anodizer Name Role Phone Bg Frazier Primary Care Provider Unavail able Jordyn Clark MD Primary Care Pro vider Reason for Visit * Reason Onset Date Comments Referral 03/28/2022 Encounter Details Date Type Department Care Team ([facility] st Contact Info) Description 03/28/2022 Telephone [facility] 230 [place] [address] Bg Frazier AGNP Referral Social History Tobacco [...] Care Team (Late st Contact Info) Description 08/19/2024 1:15 PM EDT Office Visit [facility] 230 [place], [place] [phone] Jordyn Clark MD 230 [place] [address] 10/28/2024 11:00 AM EDT Office Visit [facility] 267 [place], [place] [phone] Gregoria Leon, OD [address] [place] [address] documented as of this encounter Visit Diagnoses Diagnosis Visual testing- Primary Examination of eyes and vision documented in this encounter Care Teams Anodizer Relationship Specialty Start Date End Date Bg Frazier AGNP PCP - General Family Medicine 01/15/22 11/03/22 Jordyn Clark MD [address] [place] [address] [phone] PCP - General Internal Medicine 11/04/22 documented as of this encounter
[2024-08-16 11:17] LABS: Hematocrit 33.9 % (37.0-47.0); Hemoglobin 11.5 g/dl (12.0-16.0); Mean Corpuscular HGB Conc 33.9 g/dl (31.0-35.0); Mean Corpuscular Hemoglobin 30.6 pg (27.0-33.0); Mean Corpuscular Volume 90.2 fL (80.0-98.0); Mean Platelet Volume 9.5 fL (9.4-12.3); Platelet Count 394 X10*3/uL (160-400); Red Blood Count 3.76 X10*6/uL (4.20-5.50); Red Cell Distribution Width 12.7 % (11.0-16.0); White Blood Count 5.8 X10*3/uL (4.8-10.8)
[2024-08-16 11:26] LABS: Estimated Average Glucose 108 mg/dL; Hemoglobin A1c % 5.4 % (<6.0)
[2024-08-16 11:37] LABS: Alanine Aminotransferase 19 U/L (0-31); Albumin Level 4.4 g/dL (3.5-5.0); Alkaline Phosphatase 75 U/L (39-117); Anion Gap 11 (12-20); Aspartate Amino Transferase 24 U/L (5-31); Bilirubin Total 0.3 mg/dL (0.0-1.0); Blood Urea Nitrogen 12 mg/dL (9-16); Calcium 8.8 mg/dL (8.4-10.2); Carbon Dioxide 25 mmol/L (22-29); Chloride 106 mmol/L (96-108); Cholesterol 229 mg/dL (<200); Estimated Glomerular Filt Rate > 60; Glucose Random 110 mg/dL (60-115); HDL Cholesterol 42 mg/dL (>40); Iron 90 mcg/dL (30-160); LDL Cholesterol Calculated 158 mg/dL (<100); Percent Iron Saturation 36 % (15-50); Potassium 3.8 mmol/L (3.3-5.1); Sodium 138 mmol/L (135-145); Total Iron Binding Capacity 252 mcg/dL (228-428); Total Protein 7.1 g/dL (6.5-8.0); Triglycerides 146 mg/dL (<150); Unsaturated Iron Binding 162 ug/dL
[2024-08-16 11:43] LABS: Creatinine Urine 155.59 mg/dL; Microalbum/Creatinine Ratio Ur 13.4 ug/mg cr (<30)
[2024-08-16 11:47] LABS: Ferritin 67 ng/mL (10-250); TSH reflex Free T4 1.81 uIU/mL (0.32-4.0)
[2024-08-16 11:51] LABS: Syphilis Screen Nonreactive (Nonreactive)
[2024-08-16 12:03] LABS: Vitamin B12 501 pg/mL (200-900)
== END 2024-08-16 10:06 | disposition home or self-care (01) ==
LOC: HO.HHCL 10:05
PROVIDERS: PCP Student in an Organized Health Care Education/Training Program; Visit Provider Student in an Organized Health Care Education/Training Program
DX: Z00.00 Encounter for general adult medical examination without abnormal findings (principal)
CPT/HCPCS: 36415; 80053; 80061; 82043; 82306; 82570; 82607; 82728; 82746; 83036; 83540; 84443; 85027; 86780

== ENCOUNTER 2024-11-04 13:05 | Outpatient (REF) | payer MEDICAID, SELFPAY ==
--- OUTSIDE RECORDS SUMMARY | 2024-11-04 11:15 | XMS_ITS | Encounter Summary ---
Author Organization [employer] Address [address] [facility] 7t [place] [address] Care Team Providers Care Reflexologist Name Role Phone Jordyn Clark MD Primary Care Pro vider Encounter Details Date Type Department Care Team (Late st Contact Info) Description 11/04/2024 11:15 AM EDT Office Visit [facility] 230 [place], [place] [phone] Benita Bergman MD 230 [place], [place] [phone] Rash (Primary Dx) Social History Tobacco Use Types Packs/Day Years [...] AM EDT documented as of this encounter Last Filed Vital Signs Vital Sign Reading Time Taken Comments Blood Pressure 126/88 11/04/2024 11:51 AM EDT Pulse 69 11/04/2024 11:51 AM EDT Temperature 35.9 C (96.7 F) 11/04/2024 11:51 AM EDT Respiratory Rate 22 11/04/2024 11:51 AM EDT Oxygen Saturation - - Inhaled Oxygen Concentration - - Weight 60.3 kg (133 lb) 11/04/2024 11:51 AM EDT Height - - Body Mass Index 25.13 08/19/2024 1:44 PM EDT documented in this encounter Functional Status * Over the last 2 weeks, how often have you been bothered by any of the following problems? Question Answer Date of Assessment Author Feeling nervous, anxious, or on edge 3 11/04/2024 11:51 AM EDT Danyelle Fernandez [place] Not being able to stop or control worrying 2 11/04/2024 11:51 AM PRASANTHT Danyelle Fernandez [place] Worrying too much about different things 1 11/04/2024 11:51 AM Danyelle Mack [place] Trouble relaxing 0 11/04/2024 11:51 AM Joelle Mack [place] Being so restless that it is hard to sit still 1 11/04/2024 11:51 AM Danyelle Mack [place] Becoming easily annoyed or irritable 0 11/04/2024 11:51 AM EDT Danyelle Fernandez [place] Feeling afraid as if somethi ng awful might happen 0 11/04/2024 11:51 AM EDT Danyelle Fernandez MA JOSEPH-7 Total Score 7 11/04/2024 11:51 AM EDT Joelle Fernandez [place] documented as of this encounter Plan of Treatment Upcoming Encounters Date Type Department Care Team (Late st Contact Info) Description 11/25/2024 2:30 PM EDT Office Visit [facility] 230 [place] [address] Jordyn Clark MD 230 [place] [address] Scheduled Orders Name Type Priority Associated Diagnoses Orde r Schedule Sed Rate by Modified [facility] Routine Rash Expected: 11/04/2024 (Approximate), Expires: 11/04/2025 documented as of this encounter Procedures Procedure Name Priority Date/Time Associated Diagnosis Comments CBC WITH AUTO DIFFERENTIAL Routine 11/04/2024 1:00 PM EDT Rash C-REACTIVE PROTEIN Routine 11/04/2024 1: 00 PM EDT Rash documented in this encounter Results * C-reactive Protein (11/04/2024 1:00 PM EDT) Pathologist [facility] C Reactive Protein 0.45 < or = 0.50 mg/dL [facility] Blood Venous blood specimen / Unknown 11/04/2024 1:00 PM EDT 11/04/2024 4:03 PM EDT us Benita Bergman MD LAB BLOOD ORDERABLES Final Resul t [facility] [address] [place] [address] [phone] * (ABNORMAL) CBC auto differential (11/04/2024 1:00 PM EDT) White Blood Count 8.5 4.8 - 10.8 X10*3/uL [facility] Red Blood Count 3.74(L) 4.20 - 5.50 X10*6/uL [facility] Hemoglobin 11.1(L) 12.0 - 16.0 g/dl [facility] Hematocrit 33.8(L) 37.0 - 47.0 % [facility] Mean Corpuscular Volume 90.4 80.0 - 98.0 fL [facility] Mean Corpuscular Hemoglobin 29.7 27.0 - 33.0 pg [facility] Mean Corpuscular HGB Conc 32.8 31.0 - 35.0 g/dl [facility] Red Cell Distribution Width 12.7 11.0 - 16.0 % [facility] Platelet Count 356 160 - 400 X10*3/uL [facility] Mean Platelet Volume 10.2 9.4 - 12.3 fL [facility] Neutrophils Percent Auto 76.6(H) 45 - 73 % [facility] Imm Gran Pct Auto 0.2 0.0 - 0.4 % [facility] Lymphocytes Percent Auto 12.9(L) 20 - 40 % [facility] Monocytes Percent Auto 7.1 2 - 11 % [facility] Eosinophils Percent Auto 2.8 0 - 4 % [facility] Basophils Percent Auto 0.4 0 - 2 % [facility] NRBC Pct Auto 0.0 0.0 - 0.2 /100WBC [facility] Neutrophils Absolute Auto 6.5 2.0 - 8.3 x10*3/uL [facility] Imm Gran Abs Auto 0.02 0.00 - 0.03 X10*3/uL [facility] Lymphocytes Absolute Auto 1.1(L) 1.2 - 4.9 X10*3/uL [facility] Monocytes Absolute Auto 0.6 0.1 - 1.2 X10*3/uL [facility] Eosinophils Absolute Auto 0.2 0.0 - 0.4 X10*3/uL [facility] Basophils Absolute Auto 0.0 0.0 - 0.2 X10*3/uL [facility] NRBC Abs Auto 0.000 0.0 - 0.012 X10*3/uL [facility] Blood Venous blood specimen / Unknown 11/04/2024 1:00 PM EDT 11/04/2024 4:03 PM EDT us Benita Bergman MD LAB BLOOD ORDERABLES Final Resul t [facility] [address] [place] [address] [phone] documented in this encounter Visit Diagnoses Diagnosis Rash- Primary Rash and other nonspecific skin eruption documented in this encounter Additional Health Concerns Assessment Noted Time PHQ-9 Depression Total Score: 0 06/10/19 25 11:04 AM EDT documented as of this encounter Care Teams Reflexologist Relationship Specialty Start Date End Date Jordyn Clark MD [address] [place] [address] PCP - General Internal Medicine 11/04/22 documented as of this encounter
[2024-11-04 16:10] LABS: MANUAL DIFF FLAG NO
[2024-11-04 16:34] LABS: Hematocrit 33.8 % (37.0-47.0); Hemoglobin 11.1 g/dl (12.0-16.0); Imm Gran Abs Auto 0.02 X10*3/uL (0.00-0.03); Imm Gran Pct Auto 0.2 % (0.0-0.4); Lymphocytes Absolute Auto 1.1 X10*3/uL (1.2-4.9); Mean Corpuscular HGB Conc 32.8 g/dl (31.0-35.0); Mean Corpuscular Hemoglobin 29.7 pg (27.0-33.0); Mean Corpuscular Volume 90.4 fL (80.0-98.0); NRBC Abs Auto 0.000 X10*3/uL (0.0-0.012); NRBC Pct Auto 0.0 /100WBC (0.0-0.2); Platelet Count 356 X10*3/uL (160-400); Red Blood Count 3.74 X10*6/uL (4.20-5.50); White Blood Count 8.5 X10*3/uL (4.8-10.8)
--- OUTSIDE RECORDS SUMMARY | 2024-11-04 17:08 | XMS_ITS | Encounter Summary ---
Author Organization [employer] Address [address] [place] [address] 7 [place] [address] Care Team Providers Care Inpatient Nursing Aide Name Role Phone Jordyn Clark MD Primary Care Pro vider Reason for Visit * Reason Comments Med Refill Encounter Details Date Type Department Care Team (Late st Contact Info) Description 11/08/2022 Refill [facility] MED & PEDS [address] [place], [place] [phone] Barbra Padilla MD 505 [place], [place] [phone] Social History Tobacco Use Types Packs/Day Years [...] Description 11/25/2024 2:30 PM EDT Office Visit [facility] MEDICINE 230 [place], [place] [phone] Jordyn Clark MD 230 [place], [place] [phone] documented as of this encounter Visit Diagnoses Not on filedocumented in this encounter Additional Health Concerns Assessment Noted Time PHQ-9 Depression Total Score: 0 05/11/19 10:16 AM EDT documented as of this encounter Care Teams Inpatient Nursing Aide Relationship Specialty Start Date End Date Jordyn Clark MD [address] [place] [phone] PCP - General Internal Medicine 11/04/22 documented as of this encounter
--- OUTSIDE RECORDS SUMMARY | 2024-11-04 17:08 | XMS_ITS | Encounter Summary ---
Author Organization [employer] Address [address] [place] [address] 7 [place] [address] Care Team Providers Care Station Installer Name Role Phone Bg Frazier Primary Care Provider Unavail able Jordyn Clark MD Primary Care Pro vider Reason for Visit * Reason Onset Date Comments Med Refill 10/30/2022 Encounter Details Date Type Department Care Team (Late st Contact Info) Description 10/30/2022 Refill [facility] MED & PEDS 505 [place], [place] [phone] Bg Frazier AGNP Social History Tobacco Use [...] Description 11/25/2024 2:30 PM EDT Office Visit [facility] MEDICINE 230 [place], [place] [phone] Jordyn Clark MD 230 [place], [place] [phone] documented as of this encounter Visit Diagnoses Not on filedocumented in this encounter Additional Health Concerns Assessment Noted Time PHQ-9 Depression Total Score: 0 05/11/19 10:16 AM EDT documented as of this encounter Care Teams Station Installer Relationship Specialty Start Date End Date Bg Frazier AGNP PCP - General Family Medicine 01/15/22 11/03/22 Jordyn Clark MD [address] [place] [phone] PCP - General Internal Medicine 11/04/22 documented as of this encounter
--- OUTSIDE RECORDS SUMMARY | 2024-11-04 17:08 | XMS_ITS | Encounter Summary ---
Author Organization [employer] Address [address] [place] [address] 7 [place] [address] Care Team Providers Care Geodesist Name Role Phone Jordyn Clark MD Primary Care Pro vider Reason for Visit * Reason Comments Med Refill Encounter Details Date Type Department Care Team ([facility] st Contact Info) Description 07/10/2023 Refill [facility] MEDICINE 230 [place], [place] [phone] Jordyn Clark MD 230 [place], [place] [phone] Social History Tobacco Use Types Packs/Day Years [...] Description 11/25/2024 2:30 PM EDT Office Visit [facility] MEDICINE [address] [place] [address] Jordyn Clark MD [address] [place] [address] documented as of this encounter Visit Diagnoses Not on filedocumented in this encounter Additional Health Concerns Assessment Noted Time PHQ-9 Depression Total Score: 4 04/18/19 24 2:52 PM EST documented as of this encounter Care Teams Geodesist Relationship Specialty Start Date End Date Jordyn Clark MD [address] [place] [phone] PCP - General Internal Medicine 11/04/22 documented as of this encounter
--- OUTSIDE RECORDS SUMMARY | 2024-11-04 17:08 | XMS_ITS | Encounter Summary ---
Author Organization [employer] Address [address] [place] [address] 7t [place] [address] Care Team Providers Care Candle Wrapping Machine Operator Name Role Phone Bg Frazier Primary Care Provider Unavail able Jordyn Clark MD Primary Care Pro vider Reason for Visit * Reason Onset Date Comments medical Letter 09/09/2022 Encounter Details Date Type Department Care Team ([facility] st Contact Info) Description 09/09/2022 Telephone [facility] MEDICINE [address] [place] [address] Bg Frazier AGNP medical Letter Social History [...] handicappedservices or plate. Please contact daughter at [phone] [place] Speaker documented in this encounter Plan of Treatment Upcoming Encounters Date Type Department Care Team (Late st Contact Info) Description 11/25/2024 2:30 PM EDT Office Visit [facility] MEDICINE [address] [place] [address] Jordyn Clark MD [address] [place] [phone] documented as of this encounter Visit Diagnoses Not on filedocumented in this encounter Additional Health Concerns Assessment Noted Time PHQ-9 Depression Total Score: 0 05/11/19 10:16 AM EDT documented as of this encounter Care Teams Candle Wrapping Machine Operator Relationship Specialty Start Date End Date Bg Frazier AGNP PCP - General Family Medicine 01/15/22 11/03/22 Jordyn Clark MD [address] [place] [phone] PCP - General Internal Medicine 11/04/22 documented as of this encounter
--- OUTSIDE RECORDS SUMMARY | 2024-11-04 17:08 | XMS_ITS | Encounter Summary ---
Author Organization [employer] Address [address] [place] [address] 7 [place] [address] Care Team Providers Care Mushroom Sorter Grader Name Role Phone Jordyn Clark MD Primary Care Pro vider Reason for Visit * Reason Onset Date Comments Nurse Triage 11/01/2024 Encounter Details Date Type Department Care Team (Late st Contact Info) Description 11/01/2024 Telephone [facility]ICINE 230 [place], [place] [phone] Jordyn Clark MD 230 [place], [place] [phone] Nurse Triage Social History Tobacco Use Types Packs/Day Years [...] AM EDT documented as of this encounter Functional Status * Over the last 2 weeks, how often have you been bothered by any of the following problems? Question Answer Date of Assessment Author Feeling nervous, anxious, or on edge 3 11/04/2024 11:51 AM Danyelle Mack [place] Not being able to stop or control worrying 2 11/04/2024 11:51 AM Danyelle Mack MA Worrying too much about different things 1 11/04/2024 11:51 AM Danyelle Mack MA Trouble relaxing 0 11/04/2024 11:51 AM Joelle Mack MA Being so restless that it is hard to sit still 1 11/04/2024 11:51 AM Danyelle Mack MA Becoming easily annoyed or irritable 0 11/04/2024 11:51 AM Danyelle Mack MA Feeling afraid as if somethi ng awful might happen 0 11/04/2024 11:51 AM Danyelle Mack MA JOSEPH-7 Total Score 7 11/04/2024 11:51 AM Joelle Mack MA documented as of this encounter Miscellaneous Notes * Telephone Encounter - Tamy Campos RN - 11/01/2024 11:52 AM EDT Duplicate message. See previous note. * Telephone Encounter - Liseth Diana - 11/01/2024 11:48 AM EDT Symptoms: Rash or Redness - Widespread, Itching - No Rash Outcome: Schedule an urgent appointment (within 4 hours) or talk to a nurse or provider soon Reason: Severe itching now The caller accepted this outcome. Contact pt at [phone] (indonesian) documented in this encounter Plan of Treatment Upcoming Encounters Date Type Department Care Team (Late st Contact Info) Description 11/25/2024 2:30 PM EDT Office Visit [facility] MED[facility] [address] [place] [phone] Jordyn Clark MD [address] [place] [phone] documented as of this encounter Visit Diagnoses Not on filedocumented in this encounter Additional Health Concerns Assessment Noted Time PHQ-9 Depression Total Score: 0 06/10/19 25 11:04 AM EDT documented as of this encounter Care Teams Mushroom Sorter Grader Relationship Specialty Start Date End Date Jordyn Clark MD [address] [place] [phone] PCP - General Internal Medicine 11/04/22 documented as of this encounter
--- OUTSIDE RECORDS SUMMARY | 2024-11-04 17:08 | XMS_ITS | Encounter Summary ---
Author Organization [employer] Address [address] [place] [address] 7t [place] [address] Care Team Providers Care Undercutter Operator Name Role Phone Bg Frazier Primary Care Provider Unavail able Jordyn Clark MD Primary Care Pro vider Reason for Visit * Reason Onset Date Comments Referral 03/28/2022 Encounter Details Date Type Department Care Team ([facility] st Contact Info) Description 03/28/2022 Telephone [facility] MED[facility]INE 230 [place] [address] Bg Frazier AGNP Referral Social History Tobacco [...] Description 11/25/2024 2:30 PM EDT Office Visit [facility] [address] [place] [address] [phone] Jordyn Clark MD [address] [place] [address] [phone] documented as of this encounter Visit Diagnoses Diagnosis Visual testing- Primary Examination of eyes and vision documented in this encounter Care Teams Undercutter Operator Relationship Specialty Start Date End Date Bg Frazier AGNP PCP - General Family Medicine 01/15/22 11/03/22 Jordyn Clark MD [address] [place] [address] [phone] PCP - General Internal Medicine 11/04/22 documented as of this encounter
--- OUTSIDE RECORDS SUMMARY | 2024-11-04 17:08 | XMS_ITS | Encounter Summary ---
Author Organization [email or web address] Address [address] [place] [address] 7 [place] [address] Care Team Providers Care Optical Instrument Inspector Name Role Phone Jordyn Clark MD Primary Care Pro vider Reason for Visit * Reason Onset Date Comments Med Refill 02/24/2024 Encounter Details Date Type Department Care Team ([facility] st Contact Info) Description 02/24/2024 Telephone [facility] MED[facility]INE [address] [place], [place] [phone] Jordyn Clark MD [address] [place], [place] [phone] Med Refill Social History Tobacco Use Types [...] 11:54 AM EST Medication was sent to [facility] on 02/09/24 with 3 refills. * Telephone Encounter - Doreen Howell - 02/24/2024 11:51 AM EST TC from pt requesting medication refill. Medications needing refill : simethicone (Simethicone Ultra Strength) 180 MG capsule To be sent to: [facility] - [place], [place] - [address] [place] [address] documented in this encounter Plan of Treatment Upcoming Encounters Date Type Department Care Team (Late st Contact Info) Description 11/25/2024 2:30 PM EDT Office Visit [facility] MED[facility]INE [address] [place], [place] [phone] Jordyn Clark MD [address] [place], [place] [phone] documented as of this encounter Visit Diagnoses Not on filedocumented in this encounter Additional Health Concerns Assessment Noted Time PHQ-9 Depression Total Score: 4 04/18/19 24 2:52 PM EST documented as of this encounter Care Teams Optical Instrument Inspector Relationship Specialty Start Date End Date Jordyn Clark MD [address] [place] [phone] PCP - General Internal Medicine 11/04/22 documented as of this encounter
--- OUTSIDE RECORDS SUMMARY | 2024-11-04 17:08 | XMS_ITS | Encounter Summary ---
Author Organization [employer] Address [address] [place] [address] 7 [place] [address] Care Team Providers Care Retail Account Executive Name Role Phone Jordyn Clark MD Primary Care Pro vider Reason for Visit * Reason Onset Date Comments Created in error 10/28/2023 Encounter Details Date Type Department Care Team ([facility] Contact Info) Description 10/28/2023 Telephone [facility] MEDICINE [address] [place], [place] [phone] Jordyn Clark MD [address] [place] [phone] Created in error Social History Tobacco Use [...] Description 11/25/2024 2:30 PM EDT Office Visit [facility] [address] [place] [phone] Jordyn Clark MD [address] [place] [phone] documented as of this encounter Visit Diagnoses Not on filedocumented in this encounter Additional Health Concerns Assessment Noted Time PHQ-9 Depression Total Score: 4 04/18/19 24 2:52 PM EST documented as of this encounter Care Teams Retail Account Executive Relationship Specialty Start Date End Date Jordyn Clark MD [address] [place] [phone] PCP - General Internal Medicine 11/04/22 documented as of this encounter
--- OUTSIDE RECORDS SUMMARY | 2024-11-04 17:08 | XMS_ITS | Encounter Summary ---
Author Organization [employer] Address [address] [place] [address] 7 [place] [address] Care Team Providers Care Fire Captain Name Role Phone Jordyn Clark MD Primary Care Pro vider Reason for Visit * Reason Comments Med Refill Encounter Details Date Type Department Care Team ([facility] st Contact Info) Description 07/05/2024 Refill [facility] MED[facility]INE [address] [place], [place] [phone] Jordyn Clark MD [address] [place], [place] [phone] Epigastric pain Social History Tobacco Use Types Packs/Day Years [...] Description 11/25/2024 2:30 PM EDT Office Visit [facility] MED[facility] [address] [place] [phone] Jordyn Clark MD [address] [place] [phone] documented as of this encounter Visit Diagnoses Diagnosis Epigastric pain Abdominal pain, epigastric documented in this encounter Additional Health Concerns Assessment Noted Time PHQ-9 Depression Total Score: 0 06/10/19 25 11:04 AM EDT documented as of this encounter Care Teams Fire Captain Relationship Specialty Start Date End Date Jordyn Clark MD [address] [place] [phone] PCP - General Internal Medicine 11/04/22 documented as of this encounter
--- OUTSIDE RECORDS SUMMARY | 2024-11-04 17:08 | XMS_ITS | Encounter Summary ---
Author Organization [employer] Address [address] [place] [address] 7 [place] [address] Care Team Providers Care Composition Floor Layer Name Role Phone Jordyn Clark MD Primary Care Pro vider Reason for Visit * Reason Onset Date Comments Med Refill 08/05/2023 Encounter Details Date Type Department Care Team ([facility] st Contact Info) Description 08/05/2023 Telephone [facility] MEDICINE [address] [place], [place] [phone] Jordyn Clark MD [address] [place], [place] [phone] Med Refill Social History Tobacco Use Types [...] day supply was sent on 06/10/23 to [facility] to soon for refill. * Telephone Encounter - Jah Batres - 08/05/2023 2:30 PM EDT TC from pt requesting medication refill. Medications needing refill : omeprazole (PriLOSEC) [address] capsule To be sent to: [facility] - [place], [place] - [address] [place] [address] documented in this encounter Plan of Treatment Upcoming Encounters Date Type Department Care Team (Late st Contact Info) Description 11/25/2024 2:30 PM EDT Office Visit [facility] MEDICINE [address] [place] [address] Jordyn Clark MD [address] [place] [address] documented as of this encounter Visit Diagnoses Not on filedocumented in this encounter Additional Health Concerns Assessment Noted Time PHQ-9 Depression Total Score: 4 04/18/19 24 2:52 PM EST documented as of this encounter Care Teams Composition Floor Layer Relationship Specialty Start Date End Date Jordyn Clark MD [address] [place] [phone] PCP - General Internal Medicine 11/04/22 documented as of this encounter
--- OUTSIDE RECORDS SUMMARY | 2024-11-04 17:08 | XMS_ITS | Clinical Summary ---
Author Organization [email or web address] Address [address] [place] [address] [address] [place] [address] Care Team Providers Care Systems Librarian Name Role Phone Jordyn Clark MD Primary Care Pro vider Allergies Active Allergy Reactions Criticality Noted Date Comments Aspirin 08/01/2022 Bruising Medications ascorbic acid (Vitamin C) 500 MG tablet take one tablet daily to help with iron absorption 1 Active Blood Pressure kitIndications:E ssential hypertension 1 kit in the morning and 1 kit in the evening. 1 kit 3 Active Multiple Vitamin (multivitamin) capsule Take 1 capsule by mouth Once per day. Active acetaminophen (Tylenol 8 Hour) 650 MG ER tablet TAKE 1 TABLET BY MOUTH EVERY 8 HOURS IF NEEDED FOR MILD PAIN. DO NOT CRUSH, CHEW OR SPLIT. 30 tablet 4 Active Orencia ClickJect 125 MG/ML solution auto-injector 4 Active alendronate (Fosamax) 70 MG tablet Take 1 tablet (70 mg) by mouth every 7 (seven) days. Take in the morning with a full glass of water, on an empty stomach, and do not take anything else by mouth or lie down for the next 30 min. 4 tablet 5 5 06/10/19 26 Active sodium chloride ([place]) 0.65 % nasal spray Administer 1 spray into each nostril if needed for congestion. 15 mL 11 5 06/10/19 26 Active simethicone (Simethicone Ultra Strength) 180 MG capsule TAKE 1 CAPSULE BY MOUTH THREE TIMES DAILY FOR GAS 90 capsule 3 5 Active atorvastatin (Lipitor) 10 MG tablet Take 1 tablet (10 mg) by mouth Once per day. 90 tablet 5 08/20/19 26 Active losartan (Cozaar) 25 MG tabletIndication s:Essential hypertension TAKE 1 TABLET BY MOUTH EVERY DAY 90 tablet 5 Active cholecalciferol (Vitamin D-3) 125 MCG (5000 UT) tablet TAKE 1 TABLET BY MOUTH ONCE DAILY 90 tablet 1 5 Active omeprazole (PriLOSEC) [address] capsuleSantosh ns:Epigastric pain TAKE 1 CAPSULE BY MOUTH EVERY DAY BEFORE A MEAL 90 capsule 5 Active triamcinolone (Kenalog) 0.1 % creamIndications :Rash Apply topically if needed in the morning and at bedtime (pain and swelling). 30 g 2 5 Active predniSONE (Deltasone) 20 MG tablet Take 2 tablets (40 mg) by mouth Once per day for 5 days. 10 tablet 5 11/10/19 25 Active diphenhydrAMINE (BENADryl) 25 MG capsule Take 1 capsule (25 mg) by mouth every 8 (eight) hours if needed for itching. 90 capsule 1 5 Active clobetasol (Temovate) 0.05 % ointment Apply topically 2 times daily. 45 g 1 5 Active calcium carbonate (Calcium 600) 600 MG tablet Take 1 tablet (600 mg) by mouth with breakfast and with evening meal. 60 tablet 3 4 10/07/19 25 Active Problems Problem Noted Date Diagnosed Date Rash 08/20/2024 Assessment & Plan (10/08/2024 4:56 PM EDT): Avoid offending agents I will prescribe triamcinolone BID for 2 weeks RTC if further concerns Memory loss 06/09/2024 Osteoporosis 10/07/2023 HLD (hyperlipidemia) 07/04/2023 Recurrent sinusitis 04/19/2023 Primary [...] Blood Cell Count 3.80 - 5.10 Million/uL 3.66 Low 3.66 Low 3.28 Low Hemoglobin 11.7 - 15.5 g/dL 11.4 Low 11.6 Low 10.5 Low Hematocrit 35.0 - 45.0 % 34.1 Low 33.9 Low 30.8 Low Component Ref Range & Units 09:35 (07/03/22) 1 mo ago (05/22/22) 1 mo ago (05/10/22) 1 yr ago (01/03/21) Hemoglobin 12.0 - 15.0 10.1 Abnormal 11.4 Low R 11.6 Low R 10.5 Low R Iron wnl B12 wnl Retic count wnl APTT wnl INR wnl I have been unable to address the cause of Karissa's anemia. I will refer her to hematology for further workup. Assessment & Plan (05/24/2022 12:56 PM EDT): Patient has follow up with me on 06/21 to discuss lab work. Previous colonoscopy/biopsy was wnl. Rheumatoid arthritis 01/05/2021 Resolved Problems Problem Noted Date Diagnosed Date Resolved Date Chalazion right upper eyelid 07/27/2024 08/20/2024 Assessment & Plan (07/27/2024 2:21 PM EDT): Patient with c/o new onset of redness and swelling right upper eyelid. No photophobia, no foreign body sensation, no ocular pain, full EOM On exam presence of hordeolum right upper eyelid Plan: Warm compresses, Erythromycin ointment Follow up if worsening or no improvement Anorexia 07/04/2023 08/20/2024 Encounters Date Type Department Care Team Description 11/04/2024 11:15 AM EDT Office Visit [facility] [address] [place] [phone] Benita Bergman MD Rash (Primary Dx) 11/04/2024 Travel 11/03/2024 Telephone [facility] [address] [place] [phone] Benita Bergman MD chart prep 11/01/2024 Telephone [facility] [address] [place] [address] Jordyn Clark MD Nurse Triage 11/01/[address] [address] Jordyn Clark MD Nurse Triage 10/28/2024 11:00 AM EDT Office Visit [facility] [address] [place] [address] BuraksGregoria, OD Pterygium of both eyes (Primary Dx); Hyperopia with presbyopia of both eyes 10/28/2024 Travel 10/08/2024 3:00 PM EDT Office Visit [facility] [address] [place] [address] Jordyn Elaine MD Rash 10/08/2024 Travel 10/05/2024 Refill [facility] [address] [place] [address] Jordyn Clark MD Epigastric pain 09/20/2024 Telephone [facility] [address] [place] [address] Jordyn Clark MD Appointment 08/31/2024 Refill [facility] [address] [place] [address] Jordyn Clark MD 08/19/2024 1:15 PM EDT Office Visit [facility] [address] [place] [address] Jordyn Clark MD Poor memory (Primary Dx); Essential hypertension; Hyperlipidemia, unspecified hyperlipidemia type; Primary hypertension; Routine health maintenance; Anemia of chronic disease; Memory loss; Rash 08/19/2024 Travel 08/18/2024 Telephone [facility] [address] [place] [address] Kimberlee Emery [place] 08/16/2024 Results Follow-Up [facility] [address] [place] [address] Jordyn Clark MD Albumin, Random Urine W/Creatinine, CBC, Iron And Total Iron Binding Capacity, Additional followed-up results: 8 08/10/2024 Telephone [facility] [address] [place] [address] Jordyn Clark MD from Last 3 Months Immunizations Immunization Administration Dates Next Due Hep B, adult [...] 22 11/04/2024 11:51 AM EDT Oxygen Saturation 97% 10/08/2024 2:45 PM EDT Inhaled Oxygen Concentration - - Weight 60.3 kg (133 lb) 11/04/2024 11:51 AM EDT Height 154.9 cm (5' 1 ) 08/19/2024 1:44 PM EDT Body Mass Index 25.13 08/19/2024 1:44 PM EDT Plan of Treatment Upcoming Encounters Date Type Department Care Team ([facility] st Contact Info) Description 11/25/2024 2:30 PM EDT Office Visit [facility] [address] [place] [address] Jordyn Clark MD [address] [place] [address] Health Maintenance Due Date Last Done Comments CT Colonography 1953 FIT DNA/Cologuard 1953 FIT 1953 FOBT 1953 Sigmoidoscopy 1953 Mammogram 1993 Zoster Vaccines (1 of 2) 08/03/2003 COVID-19 Vaccine ( season) 2024 12/24/2023, 04/18/2023, 07/27/2021, Additional history exists Influenza Vaccine (#1) 2024 04/18/2023, 2021 Alcohol/Substance Use Screening 06/09/2025 06/09/2024 Depression Screening 06/09/2025 06/09/2024, 06/10/19 25 SDOH Screening 06/09/2025 06/09/2024 Tobacco Screening 11/04/2025 11/04/2024 Lipid Panel 08/16/2029 08/16/2024, 11/24, 07/01/2023, Additional history exists DTaP/Tdap/Td Vaccines (2 - Td or Tdap) 03/21/2031 03/21/2021 Colonoscopy 07/28/2031 Colorectal Cancer Screening 07/28/2031 Pneumococcal Vaccine: 50+ Years Completed 09/04/2022, 03/21/2021 Hepatitis C Screening Completed 07/01/2023 RSV Patients and Patients Aged 60 years or older Completed 07/07/2023 Hepatitis B Vaccines Completed 06/09/2024, 10/07/2023, 07/04/2023 [...] patient's age to complete this topic Meningococcal B Vaccine Aged Out No l onger eligible based on patient's age to complete [...] Procedure Name Priority Date/Time Associated Diagnosis Comments C-REACTIVE PROTEIN Routine 11/04/2024 1: 00 PM EDT Rash CBC WITH AUTO DIFFERENTIAL Routine 11/04/2024 1:00 PM EDT Rash VITAMIN D,25-OH,TOTAL,IA Routine 08/16/2024 10:16 AM EDT Annual physical exam VITAMIN B12/FOLATE, SERUM PANEL Routine 08/16/2024 10:16 AM EDT Annual physical exam TSH W/REFLEX TO FT4 Routine 08/16/2024 1 0:16 AM EDT Annual physical exam SYPHILIS SCREEN Routine 08/16/2024 10:16 AM EDT Annual physical exam LIPID PANEL, STANDARD Routine 08/16/2024 10:16 AM EDT Annual physical exam COMPREHENSIVE METABOLIC PANEL Routine 08/16/2024 10:16 AM EDT Annual physical exam HEMOGLOBIN A1C Routine 08/16/2024 10:16 AM EDT Annual physical exam FERRITIN Routine 08/16/2024 10:16 AM EDT Annual physical exam IRON AND TOTAL IRON BINDING CAPACITY Routine 08/16/2024 10:16 AM EDT Annual physical exam CBC Routine 08/16/2024 10:16 AM EDT Annual physical exam ALBUMIN, RANDOM URINE W/CREATININE Routine 08/16/2024 10:16 AM EDT Annual physical exam HEPATITIS C AB W/REFL TO HCV RNA, QN, PCR Routine 07/01/2023 9:30 AM EDT Annual physical exam from Last 3 Months or Most Recently Relevant to Health Maintenance Results * (ABNORMAL) CBC auto differential (11/04/2024 1:00 PM EDT) White Blood Count 8.5 4.8 - 10.8 X10*3/uL [facility] Red Blood Count 3.74(L) 4.20 - 5.50 X10*6/uL [facility] Hemoglobin 11.1(L) 12.0 - 16.0 g/dl [facility] Hematocrit 33.8(L) 37.0 - 47.0 % [facility] Mean Corpuscular Volume 90.4 80.0 - 98.0 fL [facility] Mean Corpuscular Hemoglobin 29.7 27.0 - 33.0 pg [facility] Mean Corpuscular HGB Conc 32.8 31.0 - 35.0 g/dl [facility] Red Cell Distribution Width 12.7 11.0 - 16.0 % [facility] Platelet Count 356 160 - 400 X10*3/uL [facility] Mean Platelet Volume 10.2 9.4 - 12.3 fL [facility] Neutrophils Percent Auto 76.6(H) 45 - 73 % [facility] Imm Gran Pct Auto 0.2 0.0 - 0.4 % [facility] Lymphocytes Percent Auto 12.9(L) 20 - 40 % [facility] Monocytes Percent Auto 7.1 2 - 11 % [facility] Eosinophils Percent Auto 2.8 0 - 4 % [facility] Basophils Percent Auto 0.4 0 - 2 % [facility] NRBC Pct Auto 0.0 0.0 - 0.2 /100WBC [facility] Neutrophils Absolute Auto 6.5 2.0 - 8.3 x10*3/uL [facility] Imm Gran Abs Auto 0.02 0.00 - 0.03 X10*3/uL [facility] Lymphocytes Absolute Auto 1.1(L) 1.2 - 4.9 X10*3/uL [facility] Monocytes Absolute Auto 0.6 0.1 - 1.2 X10*3/uL [facility] Eosinophils Absolute Auto 0.2 0.0 - 0.4 X10*3/uL [facility] Basophils Absolute Auto 0.0 0.0 - 0.2 X10*3/uL [facility] NRBC Abs Auto 0.000 0.0 - 0.012 X10*3/uL [facility] Blood Venous blood specimen / Unknown 11/04/2024 1:00 PM EDT 11/04/2024 4:03 PM EDT Benita Bergman MD LAB BLOOD ORDERABLES Final Resul t Performing Organization Address City/[facility]/ZIP Co de Phone Number [facility] [address] [place] [phone] * C-reactive Protein (11/04/2024 1:00 PM EDT) C Reactive Protein 0.45 < or = 0.50 mg/dL [facility] Blood Venous blood specimen / Unknown 11/04/2024 1:00 PM EDT 11/04/2024 4:03 PM EDT Benita Bergman MD LAB BLOOD ORDERABLES Final Resul t [facility] [address] [place] [phone] * Syphilis Screen (08/16/2024 10:16 AM EDT) Syphilis Screen Nonreactive Nonreactive [facility] Blood 08/16/2024 10:1 6 AM EDT 08/16/2024 11:08 AM EDT us Jordyn Wood MD LAB BLOOD ORDERAB LES Final Result Performing Organization Address City/[facility]/ZIP Co de Phone Number [facility] [address] [place] [phone] * Vitamin D, 25-Hydroxy, Total, Immunoassay (08/16/2024 10:16 AM EDT) Vitamin D 25-OH Total 69.0 >30 ng/mL [facility] Comment: Health Based Reference Values*< 20 ng/mL [id number] ng/mL Insufficient> 30 ng/mL Sufficient*Karen MORRIS. N Engl J Med. 2007;357:266-280There is no well-established upper level of normal vitamin Dlevels. Some laboratories use 50 ng/mL as an upper limit ofnormal. However, toxicity is patient-dependent and may occurat any level. Careful correlation with the patient'spresentation is necessary and, if there is concern forvitamin D toxicity, treatment should be consideredirrespective of the serum level.Care must be taken in interpreting Vitamin D results fromdifferent laboratories and methodologies. Published datademonstrated that results from patients undergoinghemodialysis may show a negative bias when tested withvarious automated 25-OH vitamin D assays when compared toLC-MS/MS.When testing samples from patients whose predominant form ofVitamin D is Vitamin D2, such as patients receiving VitaminD2 supplementation, results that are subtherapeutic shouldbe confirmed with another method such as LC-MS/MS. Blood Venous blood specimen / Unknown 08/16/2024 10:16 AM EDT 08/16/2024 11:08 AM EDT Jordyn Wood MD LAB BLOOD ORDERAB LES Final Result Performing Organization Address [facility]/ZIP Co de Phone Number [facility] [address] [place] [phone] * Vitamin B12 (Cobalamin) and Folate Panel, Serum (08/16/2024 10:16 AM EDT) Pathologist [facility] Vitamin B12 501 200 - 900 pg/mL [facility] Comment:NORMAL 200-900 PG/ML INDETERMINATE 160-199 PG/ML DEFICIENT < 160 PG/ML Folate 12.0 > or = 4.0 ng/mL [facility] Comment:Reference Values:> o r = 4.0 ng/mL< 4.0 ng/mL suggests folate deficiency Methotrexate, aminopterin and folinic acid(leucovorin) are chemotherapeutic agents whose molecularstructures are similar to folate; therefore, the Architectfolate assay cannot be used for patients using these drugs. Blood 08/16/2024 10:1 6 AM EDT 08/16/2024 11:08 AM EDT us Jordyn Wood MD LAB BLOOD ORDERAB LES Final Result Performing Organization Address [facility] Co de Phone Number [facility] [address] [place] [phone] * TSH with Reflex to Free T4 (08/16/2024 10:16 AM EDT) [facility] TSH reflex Free T4 1.81 0.32 - 4.0 uIU/mL [facility] Blood 08/16/2024 10:1 6 AM EDT 08/16/2024 11:08 AM EDT us Jordyn Wood MD LAB BLOOD ORDERAB LES Final Result Performing Organization Address [facility]/ZIP Co de Phone Number [facility] [address] [place] [phone] * Albumin, Random Urine W/Creatinine (08/16/2024 10:16 AM EDT) [facility] Creatinine, Urine 155.59 mg/dL [facility] Microalbumin Urine 21.0 mg/L [facility] Microalbum Creatinine Ratio Ur 13.4 <30 ug/mg cr [facility] Comment:Albumin/Creatinine R atio Reference Ranges: Normal: < 30 ug/mg creatinine Microalbuminuria: 30 - 300 ug/mg creatinineClinical Albuminuria: > 300 ug/mg creatinine Urine (Urine, Random) 08/16/2024 10:16 AM EDT 08/16/2024 10:56 AM EDT us Jordyn Wood MD LAB URINE ORDERAB LES Final Result Performing Organization Address [facility]/ZIP Co de Phone Number [facility] [address] [place] [phone] * Iron And Total Iron Binding Capacity (08/16/2024 10:16 AM EDT) [facility] Iron 90 30 - 160 mcg/dL [facility] Total Iron Binding Capacity 252 228 - 428 mcg/dL [facility] Percent Iron Saturation 36 15 - 50 % [facility] Unsaturated Iron Binding 162 ug/dL [facility] Blood Venous blood specimen / Unknown 08/16/2024 10:16 AM EDT 08/16/2024 11:08 AM EDT us Jordyn Wood MD LAB BLOOD ORDERAB LES Final Result Performing Organization Address [facility] de Phone Number [facility] [address] [place] [phone] * (ABNORMAL) CBC (08/16/2024 10:16 AM EDT) White Blood Count 5.8 4.8 - 10.8 X10*3/uL [facility] Red Blood Count 3.76(L) 4.20 - 5.50 X10*6/uL [facility] Hemoglobin 11.5(L) 12.0 - 16.0 g/dl [facility] Hematocrit 33.9(L) 37.0 - 47.0 % [facility] Mean Corpuscular Volume 90.2 80.0 - 98.0 fL [facility] Mean Corpuscular Hemoglobin 30.6 27.0 - 33.0 pg [facility] Mean Corpuscular HGB Conc 33.9 31.0 - 35.0 g/dl [facility] Red Cell Distribution Width 12.7 11.0 - 16.0 % [facility] Platelet Count 394 160 - 400 X10*3/uL [facility] Mean Platelet Volume 9.5 9.4 - 12.3 fL [facility] NRBC Pct Auto 0.0 0.0 - 0.2 /100WBC [facility] NRBC Abs Auto 0.000 0.0 - 0.012 X10*3/uL [facility] Blood Venous blood specimen / Unknown 08/16/2024 10:16 AM EDT 08/16/2024 11:08 AM EDT us Jordyn Wood MD LAB BLOOD ORDERAB LES Final Result [facility] [address] [place] [phone] * Hemoglobin A1c (08/16/2024 10:16 AM EDT) Hemoglobin A1c 5.4 <6.0 % [facility] Comment:Hemoglobin A1C Refer ence Range Adults: 4.8 - 6.0 % Non diabetic: < 6.0 % Goal: < 7.0 %Additional Action Suggested: > 8.0 %Note: Hemoglobin A1c results are invalid for patients with abnormal amounts of HbF. Blood transfusions may impact the HbA1c concentration in the patient sample. Estimated Average Glucose 108 mg/dL [facility] Comment:eAG = Estimated ave rage glucose which is %A1C expressed asaverage glucose, using the formula of the R3O-XithcloWnbxqer Glucose study (ADAG), Diabetes Care, Vol.31,#8,Sep. 2007 Blood Venous blood specimen / Unknown 08/16/2024 10:16 AM EDT 08/16/2024 11:08 AM EDT Jordyn Wood MD LAB BLOOD ORDERAB LES Final Result [facility] [address] [place] [phone] * Ferritin (08/16/2024 10:16 AM EDT) Ferritin 67 10 - 250 ng/mL [facility] Blood Venous blood specimen / Unknown 08/16/2024 10:16 AM EDT 08/16/2024 11:08 AM EDT us Jordyn Wood MD LAB BLOOD ORDERAB LES Final Result Performing Organization Address [facility]/ZIP Co de Phone Number [facility] [address] [place] [phone] * (ABNORMAL) Lipid Panel, Standard (08/16/2024 10:16 AM EDT) Pathologist [facility] Triglycerides 146 <150 mg/dL [facility] Comment:Desirable Triglyceri de: less than 150 mg/dLBorderline High Triglyceride 150-199 mg/dLHigh Triglyceride: 200-499 mg/dLVery High Triglyceride: greater than or equal to 5OO mg/dL Cholesterol 229(H) <200 mg/dL [facility] Comment:Desirable Cholestero l: less than 200 mg/dLBorderline High Cholesterol: 200-239 mg/dLHigh Cholesterol: greater than 239 mg/dL LDL Cholesterol Calculated 158(H) <100 mg/dL [facility] Comment:Desirable LDL: less than 100 mg/dLNear Optimal/Above Optimal LDL: 110- 129 mg/dLBorderline High LDL: 130-159 mg/dLHigh LDL: 160-189 mg/dLVery High LDL: greater than or equal to 190 mg/dL HDL Cholesterol 42 >40 mg/dL [facility] Comment:Desirable HDL: great er than 40 mg/dL Note: This HDL assay may give artificially low results in patients with liver disease. Blood Venous blood specimen / Unknown 08/16/2024 10:16 AM EDT 08/16/2024 11:08 AM EDT us Jordyn Wood MD LAB BLOOD ORDERAB LES Final Result [facility] [address] [place] [phone] * (ABNORMAL) Comprehensive Metabolic Panel (08/16/2024 10:16 AM EDT) Sodium 138 135 - 145 mmol/L [facility] Potassium 3.8 3.3 - 5.1 mmol/L [facility] Chloride 106 96 - 108 mmol/L [facility] Carbon Dioxide 25 22 - 29 mmol/L [facility] Anion Gap 11(L) 12 - 20 [facility] Urea Nitrogen (BUN) 12 9 - 16 mg/dL [facility] Creatinine, Serum 0.51 0.5 - 1.4 mg/dL [facility] Estimated Glomerular Filt Rate >60 [facility] Comment:Chronic Kidney Disea se: Estimated GFR < 60 mL/min/[id number] Kidney Disease: Estimated GFR < 15 mL/min/1.73m2 Glucose 110 60 - 115 mg/dL [facility] Calcium 8.8 8.4 - 10.2 mg/dL [facility] Bilirubin, Total 0.3 0.0 - 1.0 mg/dL [facility] Aspartate Amino Transferase 24 5 - 31 U/L [facility] Alanine Aminotransferase 19 0 - 31 U/L [facility] Total Protein 7.1 6.5 - 8.0 g/dL [facility] Albumin Level 4.4 3.5 - 5.0 g/dL [facility] Alkaline Phosphatase 75 39 - 117 U/L [facility] Blood Venous blood specimen / Unknown 08/16/2024 10:16 AM EDT 08/16/2024 11:08 AM EDT us Jordyn Wood MD LAB BLOOD ORDERAB LES Final Result [facility] [address] [place] [phone] * Hepatitis C Antibody with Reflex to HCV, RNA, Quantitative, Real-Time PCR (07/01/2023 9:30 AM EDT) Hepatitis C Antibody Nonreactive Nonreactive [facility] Comment:Antibodies to HCV no t detected; does not exclude early acuteHCV infection. Blood Venous blood specimen / Unknown 07/01/2023 9:30 AM EDT 07/01/2023 11:41 AM EDT Jordyn Wood MD LAB BLOOD ORDERAB LES Final Result [facility] [address] [place] [phone] from Last 3 Months or Most Recently Relevant to Health Maintenance Insurance [facility] STANDARD Care Teams Systems Librarian Relationship Specialty Start Date End Date Jordyn Clark MD [address] [place] [address] [phone] PCP - General Internal Medicine 11/04/22
--- OUTSIDE RECORDS SUMMARY | 2024-11-04 17:08 | XMS_ITS | Encounter Summary ---
Author Organization [employer] Address [address] [place] [address] [address] [place] [address] Care Team Providers Care Seat Cover Cutter Name Role Phone Jordyn Clark MD Primary Care Pro vider Reason for Visit * Reason Onset Date Comments Med Refill 12/05/2023 Encounter Details Date Type Department Care Team ([facility] st Contact Info) Description 12/05/2023 Telephone [facility] [address] [place], [place] [phone] Jordyn Clark MD [address] [place] [phone] Med Refill Social History Tobacco Use Types [...] 3:38 PM EDT Medication was sent to [facility] on 09/15/23 with 3 refills. * Telephone Encounter - Hitesh Araiza - 12/05/2023 3:35 PM EDT TC from pt requesting medication refill. Medications needing refill: simethicone (Simethicone Ultra Strength) 180 MG capsule To be sent to: [facility] - [place], [place] - [address] [place] [address] documented in this encounter Plan of Treatment Upcoming Encounters Date Type Department Care Team (Late st Contact Info) Description 11/25/2024 2:30 PM EDT Office Visit [facility] [address] [place] [address] Jordyn Clark MD [address] [place] [address] documented as of this encounter Visit Diagnoses Not on filedocumented in this encounter Additional Health Concerns Assessment Noted Time PHQ-9 Depression Total Score: 4 04/18/19 24 2:52 PM EST documented as of this encounter Care Teams Seat Cover Cutter Relationship Specialty Start Date End Date Jordyn Clark MD [address] [place] [phone] PCP - General Internal Medicine 11/04/22 documented as of this encounter
--- OUTSIDE RECORDS SUMMARY | 2024-11-04 17:08 | XMS_ITS | Encounter Summary ---
Author Organization [employer] Address [address] [facility] [address] [place] [address] Care Team Providers Care Fitting Room Supervisor Name Role Phone Jordyn Clark MD Primary Care Pro vider Reason for Visit * Reason Onset Date Comments chart prep 11/03/2024 Encounter Details Date Type Department Care Team ([facility] st Contact Info) Description 11/03/2024 Telephone [facility] MEDICINE [address] [place], [place] [phone] Benita Bergman MD [address] [place], [place] [phone] chart prep Social History Tobacco Use Types Packs/Day Years [...] your housing situation today? I have elizabeth costelol 06/09/[address] you li [...] encounter Miscellaneous Notes * Telephone Encounter - Iman Anderson MA - 11/03/2024 4:00 PM EDT Chart Prep Labs: done Images: done Screenings: Mammogram Vaccines due: Covid Due, Flu Due, and Shingles in pharmacy Due Referrals: Completed Overdue care gaps: GAD7 documented in this encounter Plan of Treatment Upcoming Encounters Date Type Department Care Team (Late st Contact Info) Description 11/25/2024 2:30 PM EDT Office Visit [facility] MEDICINE [address] [place] [phone] Jordyn Clark MD [address] [place] [phone] documented as of this encounter Visit Diagnoses Not on filedocumented in this encounter Additional Health Concerns Assessment Noted Time PHQ-9 Depression Total Score: 0 06/10/19 25 11:04 AM EDT documented as of this encounter Care Teams Fitting Room Supervisor Relationship Specialty Start Date End Date Jordyn Clark MD [address] [place] [id number] PCP - General Internal Medicine 11/04/22 documented as of this encounter
--- OUTSIDE RECORDS SUMMARY | 2024-11-04 17:08 | XMS_ITS | Encounter Summary ---
Author Organization [email or web address] Address [address] [place] [address] [address] [place] [address] Care Team Providers Care Conduit Reamer Operator Name Role Phone Jordyn Clark MD Primary Care Pro vider Reason for Visit * Reason Onset Date Comments Nurse Triage 11/01/2024 Encounter Details Date Type Department Care Team (Late st Contact Info) Description 11/01/2024 Telephone [facility] MEDICINE [address] [place], [place] [phone] Jordyn Clark MD [address] [place], [place] [phone] Nurse Triage Social History Tobacco Use Types [...] encounter Miscellaneous Notes * Telephone Encounter - Aissatou Durán RN - 11/01/2024 12:22 PM EDT Triage call with [facility] vice president research [place] [id number]. Pt reports continued rash which has spreadfurther. Pt was seen in [facility] 10/08/24 for red, rash on abdomen, neck, arms and legs. Pt was prescribed triamcinalone 0.1% which Pt has used as prescribed for 2 weeks. Pt continues to have this rash andit is especially itchy at night time. Pt would like to see a provider. ASK with Dr. Bergman [id number]. Pt insurance is verified as active prior to booking. Protocol Used: Rash or Redness - Widespread (Adult) Protocol-Based Disposition: See in Office or Video Visit Today or Tomorrow Video visit not offered Positive Triage Question: * Mild widespread rash (Exception: Heat rash lasting 3 days or less.) * All higher-acuity triage questions were negative Care Advice Discussed: * Reasons To Call Back - Rash becomes purple or blood-colored or blister-like - Fever occurs or severe itching - You become worse * Telephone Encounter - Pam Yao - 11/01/2024 11:38 AM EDT Symptom: Rash or Redness - Widespread Outcome: Schedule a same-day appointment or talk to a nurse or provider today Reason: Caller denied all higher acuity questions The caller accepted this outcome. Contact pt at [phone] Need rn integrity documented in this encounter Plan of Treatment Upcoming Encounters Date Type Department Care Team (Late st Contact Info) Description 11/25/2024 2:30 PM EDT Office Visit [facility] MEDICINE [address] [place] [phone] Jordyn Clark MD [address] [place] [phone] documented as of this encounter Visit Diagnoses Not on filedocumented in this encounter Additional Health Concerns Assessment Noted Time PHQ-9 Depression Total Score: 0 06/10/19 11:04 AM EDT documented as of this encounter Care Teams Conduit Reamer Operator Relationship Specialty Start Date End Date Jordyn Clark MD [address] [place] [phone] PCP - General Internal Medicine 11/04/22 documented as of this encounter
--- OUTSIDE RECORDS SUMMARY | 2024-11-04 17:08 | XMS_ITS | Encounter Summary ---
Author Organization [employer] Address [address] [facility] [address] [place] [address] Care Team Providers Care Smart Grid Engineer Name Role Phone Jordyn Clark MD Primary Care Pro vider Encounter Details Date Type Department Care Team (Latest Contact Info) Description 11/04/2024 Travel Social History Tobacco Use Types Packs/Day Years [...] [id number] Total Score 7 11/04/2024 11:51 AM EDJoelle Carrasquillo MA documented as of this encounter Plan of Treatment Upcoming Encounters Date Type Department Care Team (Late st Contact Info) Description 11/25/2024 2:30 PM EDT Office Visit [facility] MEDICINE [address] [place] [phone] Jordyn Clark MD [address] [place] [phone] documented as of this encounter Visit Diagnoses Not on filedocumented in this encounter Additional Health Concerns Assessment Noted Time PHQ-9 Depression Total Score: 0 06/10/19 25 11:04 AM EDT documented as of this encounter Care Teams Smart Grid Engineer Relationship Specialty Start Date End Date Jordyn Calrk MD [address] [place] [phone] PCP - General Internal Medicine 11/04/22 documented as of this encounter
== END 2024-11-04 13:06 | disposition home or self-care (01) ==
LOC: HO.HHCL 13:05
PROVIDERS: PCP Student in an Organized Health Care Education/Training Program; Visit Provider Family Medicine
DX: R21 Rash and other nonspecific skin eruption (principal)
CPT/HCPCS: 36415; 85025; 85652; 86140